=== PATIENT | male | born 1945 | race Caucasian/White ===

== ENCOUNTER 2016-11-27 19:44 | Inpatient (IN) | payer MEDICARE, OTHER ==
[~2016-11-27] VITALS: Ht 165.1 cm; Wt 71.8 kg
--- NOTE | ~2016-11-27 | CON ---
PATIENT'S NAME: LENY GALLEGOS [facility] AGE: 71 Y [address] ROOM: [place] [address] LOCATION: TU ADMIT DATE: 11/27/2016 Consultation DISCHARGE DATE: FAMILY PHYSICIAN: Manjit Gomez MD ATTENDING PHYSICIAN: Hector Pritchard DATE OF CONSULTATION: 12/06/2016 REFERRING PHYSICIAN: JANNY ERICKSON MD SURGICAL CONSULTATION HISTORY OF PRESENT ILLNESS: This is a complex 71-year-old patient, who had a hip fracture with fat emboli, sustained a CVA and myocardial infarction, who currently is in need of a percutaneous endoscopic gastrostomy. He was tolerating tube feedings well with a Dobbhoff tube but kept pulling this out, and family and primary care physician has suggested a percutaneous endoscopic gastrostomy. His only intraabdominal procedure is that of a laparoscopic cholecystectomy approximately 10 years ago. His medications have been reviewed, and he is on subcutaneous heparin, which will be discontinued tonight. He is also on antibiotics for urinary tract infection. I am also told by the family and the nurse that he is having a cardiac cath today because of a low ejection fraction of 35%, and his relative, who is a nurse, told me that he has an ostium secundum. He is paced for atrial fibrillation but not on systemic anticoagulation. I reviewed his medications and allergies in detail as well as his operations other than the laparoscopic cholecystectomy, orthopedic procedures. His medical problems are as outlined above. REVIEW OF SYSTEMS: Positive for laparoscopic cholecystectomy, requirement for [facility] catheter, and stroke. The remainder of the review of systems is noncontributory surgically for the surgical problem. FAMILY HISTORY: Likewise is noncontributory for the surgical issue. SOCIAL HISTORY: Likewise is noncontributory for the surgical issue. PHYSICAL EXAMINATION: VITAL SIGNS: He is disoriented, afebrile. Vital signs are stable. HEENT: Negative. SKIN: Turgor is satisfactory. CHEST: Clear. PATIENT'S NAME: LENY GALLEGOS [facility] AGE: 71 Y [address] ROOM: [place] [address] LOCATION: [facility] ADMIT DATE: 11/27/2016 Consultation DISCHARGE DATE: FAMILY PHYSICIAN: Manjit Gomez MD ATTENDING PHYSICIAN: Hector Pritchard HEART: No gallops or definitive murmurs. ABDOMEN: Soft, good bowel sounds, no masses or organomegaly. Groin is unremarkable. EXTREMITIES: Perfused. LABORATORY DATA: I have reviewed his laboratory data, which is generally satisfactory with a normal white count, hematocrit is satisfactory, platelet count satisfactory. Electrolytes satisfactory. BUN and creatinine satisfactory. PLAN: Percutaneous endoscopic gastrostomy under general anesthesia. I have discussed all risks, complications in great detail with the family, one of whom is a nurse, and they understand and accept. MD ELA HARRIS/kendal /[id number] d: 12/06/162321 t: 12/07/16 0522, CONSULTATION REPORT
--- NOTE | ~2016-11-27 | DS ---
PATIENT'S NAME: LENY GALLEGOS [facility] AGE: 71 Y [address] ROOM: [address] [address] LOCATION: TU ADMIT DATE: 11/27/2016 Discharge Summary DISCHARGE DATE: 12/09/2016 FAMILY PHYSICIAN: Manjit Gomez MD ATTENDING PHYSICIAN: Hector Pritchard PRIMARY DIAGNOSES: 1. Acute hypoxic respiratory failure. 2. Bilateral middle cerebral artery stroke. 3. Fat embolism syndrome. 4. Sepsis. 5. Escherichia coli pneumonia. 6. Enterococcus faecalis urinary tract infection. 7. Systolic heart failure. 8. Patent foramen ovale with severe shunting. 9. Asthma. 10. Left femur fracture. LABORATORY DATA: ABG on admission; pH of 7.37, pCO2 of 39, pO2 of 64, bicarb 22.5, saturation 91%. On admission, WBC was 14.0, prior to transfer was 17.8; H and H on admission were 12.4 and 36.1, prior to transfer were 10.3 and 32.6. Troponin on admission was less than 0.040 and by the next couple of days later went up to 10.2, which was the highest level obtained. ProBNP was 159 on admission, prior to transfer was 1952. Platelet was stable throughout the hospital stay. Sodium on admission was 145, highest level obtained was 149, was 150, prior to transfer was 147; potassium was stable at 3.7, prior to discharge was 3.9; bicarb was also stable throughout the hospital stay; BUN on admission was 16, was also stable throughout the hospital stay. Liver function test was also stable throughout the hospital stay. Total cholesterol 139, triglyceride 87, LDL 86. INR was 1.1. UA on admission, leukocytes 25, nitrite negative, wbc 0-2; the repeat a week later was leukocytes 100. nitrite negative, wbc 5-10, few bacteria. Vitamin level was 478, folate 34.7. procalcitonin was 0.76, on admission it was less than 0.05. MICROBIOLOGY DATA: Blood culture, no growth after 5 days. Urine culture was positive for Enterococcus faecalis. Tracheal aspirate was positive for E. coli. RADIOLOGY DATA: Chest x-ray on admission, cardiac pacemaker in place. Low lung volumes with bibasilar atelectasis. No vascular congestion or acute parenchymal infiltrate identified on portable upright study. CTA for PE protocol, no PE. Bibasilar segmental atelectasis. KUB: Dobbhoff feeding tube in place with tip in the region of the mid PATIENT'S NAME: LENY GALLEGOS [facility] AGE: 71 Y [address] ROOM: [place] [address] LOCATION: GNTU ADMIT DATE: 11/27/2016 Discharge Summary DISCHARGE DATE: 12/09/2016 FAMILY PHYSICIAN: Manjit Gomez MD ATTENDING PHYSICIAN: Hector Pritchard. CT of the head, no acute hemorrhage or midline shift. Decreased attenuation involving fox matter and white matter at the right temporoparietal region. The appearance is consistent with ischemic infarct in the right middle cerebral artery territory. Infarct may be subacute as there is some local mass effect with sulcal effacement area of decreased attenuation. CT head and neck without acute arterial lesion or significant stenosis or infarct, and the head CT is low dense and appears well established. This may be chronic. Comparison with priors would be helpful. CT head without contrast repeat shows new acute large left MCA distribution infarct with associated mass effect as described above. Stable remote appearing right MCA distribution infarct. KUB for position placement of Dobhoff, a feeding tube is present with tip below the level of the GE junction. Chest x-ray, suboptimal inspiration accentuates the cardiac silhouette and bronchovascular markings. No discrete focal infiltrate, pleural effusion, or pneumothorax identified. Support lines and tubes appear to be in satisfactory position, and KUB, Dobhoff feeding is present with tip called at the mid stomach. There is a nonobstructive bowel gas pattern. Repeat CT head, continued evolution of large subacute left MCA distribution infarct. No evidence of associated hemorrhage. Stable remote appearing ischemia in the posterior right temporal. Chest x-ray exam was performed under suboptimal inspiration. Cardiac silhouette is within normal limits. Cardiovascular: Echocardiogram. At rest, the following contractile abnormalities were noted. Hypokinesis of the apical septal, apical lateral, apical anterior, and apical cap segments contractility of all segments appeared normal. Ejection fraction probably 40%. Upon injection of bubbles, both atria immediately filled the bubbles and seen in LV and aorta within a couple of beats. Echo: Regular echo. Normal LV size with mild LV 30%-35%. Basal segments move better than the distal segments and apex. PFO and ASD by bubble study. 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 Right heart catheterization, moderate ectasia of LAD and circumflex. Right PATIENT'S NAME: LENY GALLEGOS [facility] AGE: 71 Y [address] ROOM: [place] [address] LOCATION: TU ADMIT DATE: 11/27/2016 Discharge Summary DISCHARGE DATE: 12/09/2016 FAMILY PHYSICIAN: Manjit Gomez MD ATTENDING PHYSICIAN: Hector Pritchard mid RCA mild ectasia. No stenosis. Normal LV function and wall motion. Medical treatment. HOSPITAL COURSE: This patient was admitted to the service of Orthopedic team of Dr. Pritchard and Dr. Pacheco for a left femur fracture, and hospitalists were consulted for preop clearance. After the patient was reviewed by Dr. Davis, Dr. Davis recommended for Pulmonary consult as the patient was in acute hypoxic respiratory failure, was on Ventimask, and required 10 L of oxygen at the time of evaluation, and only saturating 92%. His suspicion was for probable fat embolism syndrome responsible for his acute respiratory failure. After the patient was reviewed by Pulmonary, they recommended to put on hold the surgical intervention secondary to the patient's poor respiratory status. However, they did go ahead to do an echocardiogram with bubble study, which was positive, and by the second day of the patient's hospital stay, his oxygen demand had actually gone down from being on a Ventimask went up to BiPAP, and eventually, he was weaned down back to nasal cannula. However, on the third day of his hospital stay, the patient was observed to have developed an acute mental status change, and such that, the patient became aphasic, and an urgent CT head, which was done showed an old right MCA stroke. However, the patient remained aphasic and also developed right hemiplegia, and subsequently following this, the patient had whole stroke workup done, and the repeat CT head showed a new left MCA stroke. From the initial change in the mental status, Neurology consult was also called, and following the new finding of left MCA stroke, they recommended for the surgery to be delayed for another 48 hours given the huge size of the stroke. However, the patient continued to remain aphasic with right hemiplegia, and also left-sided neglect. Based on this, he failed speech and swallow evaluation and ultimately had to be getting his nutrition through the tube feeding. By December 01, 2016, the patient was observed to have developed a low-grade temperature. This was thought to be attributed to his left femur hematoma, however, sepsis workup, which was done showed an elevation in his procalcitonin, and urine culture ultimately became positive for Enterococcus faecalis, and his respiratory culture also was positive for E. coli, and prior to obtaining the sensitivity, the patient was empirically started on cefepime, which was later changed to Rocephin by the inbound telemarketer to receive for a total of 7 days. The patient's respiratory status again continued to worsen, again requiring high-flow oxygen, which was interchanged with BiPAP. Three days prior to transfer, the patient was taken into the senior cytogenetics laboratory director by the supervisor pumping who also was on the case for a left heart catheterization, which essentially did not show any coronary artery disease that required any intervention. They recommended for medical management. Following this, the patient's respiratory condition worsened, requiring to go back on high-flow of oxygen. During his stay, Palliative consult was also called as the patient's prognosis appeared pretty bad as was still aphasic and also with left-sided neglect and also with worsening respiratory condition, and on December 09, 2016, family decided to transfer the PATIENT'S NAME: LENY GALLEGOS [facility] AGE: 71 Y [address] ROOM: [place] [address] LOCATION: [facility] ADMIT DATE: 11/27/2016 Discharge Summary DISCHARGE DATE: 12/09/2016 FAMILY PHYSICIAN: Manjit Gomez MD ATTENDING PHYSICIAN: Hector Pritchard patient to higher level of care because of his cardiopulmonary failure, so the patient was transferred to [facility]. MEDICATIONS ON TRANSFER: 1. Prevacid 30 mg every day before breakfast. 2. Flagyl 500 mg IV every 6 hours. 3. Rocephin 2 g daily for total of 7 days. 4. Tylenol 650 mg every 6 hours. 5. Aspirin 325 mg q.h.s. 6. Lipitor 40 mg p.o. q.h.s. 7. Lasix 40 mg IV. 8. Metoprolol 12.5 mg p.o. twice daily. 9. Aldactone 12.5 mg p.o. daily. 10. Pulmicort 0.5 mg twice daily respiratory. 11. Atrovent 0.5 mg every 4 hours respiratory. 12. Xopenex every 4 hours p.r.n. 13. Tylenol 650 mg q.4 hours p.r.n. 14. Artificial tears. 15. Dulcolax 10 mg rectally daily p.r.n. 16. Flonase 50 mcg one spray everyday p.r.n. 17. Lopressor 2 mg IV every 4 hours p.r.n. 18. Morphine 2 mg IV every 2 hours p.r.n. 19. Zofran 4 mg IV every 4 hours p.r.n. MD CLEMENTINE MARQUEZ/kendal /[id number] d: 01/25/17 2142 t: 02/06/17 1641, DISCHARGE SUMMARY
--- NOTE | ~2016-11-27 | ENPV ---
Vascular Lower Extremities DVT Study Procedure Demographics Patient Name LENY GALLEGOS Date of Study 11/29/2016 Patient Number [id number] Gender Male Date of 1945 Age 71 Visit Number [id number] Height Accession Number [id number] Weight Room Number G6223 BSA BMI Referring Shamalouis Mehta Jolene Poole MD Physician Physician Physician Ordering Spirits Model Physician Bottle Assembler Rufina Bo, RT,RVT,RDCS Conclusions Procedure Type of Study: Veins:Lower Extremities DVT Study, Venous Duplex Lower Extremity Bilateral. Allergies - Chocolate. Velocities are measured in cm/s ; Diameters are measured in cm Right Lower Extremities DVT Study Measurements Right 2D and Doppler Measurements + + + + +------+------+ + !Location !Visualized!Compressibility!Thrombosis!Signal!Reflux!Reflux ! ! ! ! ! ! ! !(sec) ! + + + + +------+------+ + !GSV Thigh !Yes !Yes !None !Phasic!No ! ! + + + + +------+------+ + !Common !Yes !Yes !None !Phasic!No ! ! !Femoral ! ! ! ! ! ! ! + + + + +------+------+ + !Prox !Yes !Yes !None !Phasic!No ! ! !Femoral ! ! ! ! ! ! ! + + + + +------+------+ + !Mid Femoral!Yes !Yes !None !Phasic!No ! ! + + + + +------+------+ + !Dist !Yes !Yes !None !Phasic!No ! ! !Femoral ! ! ! ! ! ! ! + + + + +------+------+ + !Popliteal !Yes !Yes !None !Phasic!No ! ! + + + + +------+------+ + !Gastroc !Yes !Yes !None !Phasic!No ! ! + + + + +------+------+ + !PTV !Yes !Yes !None !Phasic!No ! ! + + + + +------+------+ + !Peroneal !Yes !Yes !None !Phasic!No ! ! + + + + +------+------+ + Left Lower Extremities DVT Study Measurements Left 2D and Doppler Measurements + + + + +------+------+ + !Location !Visualized!Compressibility!Thrombosis!Signal!Reflux!Reflux ! ! ! ! ! ! ! !(sec) ! + + + + +------+------+ + !GSV Thigh !Yes !Yes !None !Phasic!No ! ! + + + + +------+------+ + !Common !Yes !Yes !None !Phasic!No ! ! !Femoral ! ! ! ! ! ! ! + + + + +------+------+ + !Prox !Yes !Yes !None !Phasic!No ! ! !Femoral ! ! ! ! ! ! ! + + + + +------+------+ + !Mid Femoral!Yes !Yes !None !Phasic!No ! ! + + + + +------+------+ + !Dist !Yes !Yes !None !Phasic!No ! ! !Femoral ! ! ! ! ! ! ! + + + + +------+------+ + !Popliteal !Yes !Yes !None !Phasic!No ! ! + + + + +------+------+ + !Gastroc !Yes !Yes !None !Phasic!No ! ! + + + + +------+------+ + !PTV !Yes !Yes !None !Phasic!No ! ! + + + + +------+------+ + !Peroneal !Yes !Yes !None !Phasic!No ! ! + + + + +------+------+ + Impressions Right Impression Poor positioning but no evidence or indication of DVT in right lower extremity. Left Impression Left lower extremity veins were patent, however, proximal SFV appeared small; old DVT and vein atrophy versus trauma (fractured proximal left femur.) Signature dtt: dtd: 11/29/16 1050 Physician Self Edit
--- NOTE | ~2016-11-27 | CON ---
PATIENT'S NAME: L[facility]Y [facility] AGE: 71 Y [address] ROOM: [address] [address] LOCATION: GNTU ADMIT DATE: 11/27/2016 Consultation DISCHARGE DATE: FAMILY PHYSICIAN: Manjit Gomez MD ATTENDING PHYSICIAN: Hector Pritchard DATE OF CONSULTATION: 12/03/2016 REFERRING PHYSICIAN: JANNY ERICKSON MD LOCATION: Neurotrauma, [facility]. REASON FOR CONSULTATION: This is a Palliative Care referral for goals of care and the patient and family support. HISTORY OF PRESENT ILLNESS: This 71-year-old gentleman was admitted on 11/27/2016 after having a fall at home and fracturing his left hip, which is a proximal left femur fracture. The patient did not his head. He had been living at home with his son and had been walking with a walker and had right lower extremity weakness after right hip surgery with some footdrop in 2005. He has a history of second-degree AV block with a permanent dual-chamber pacemaker. The patient was transferred to [facility] from [place] for a possible femur fracture repair. The patient had been having hypoxia and he is currently on high-flow at 65 L. He has been having workup for potential fat emboli and was trying to get cleared for surgery. In the meantime, the patient had a decrease in level of consciousness and a CT of the head was done on 11/30/2016 revealing a new acute large left MCA infarct and a stable remote appearing right MCA distribution infarct. He is currently flaccid on right-side and aphasic. Neurology was consulted for right hemiplegia and mutism. He is not following commands. Does seem to blink his eyes on command. Left femur fracture was not repaired due to the patient's unstable current condition. PAST MEDICAL HISTORY: Gastroesophageal reflux disease with hiatal hernia, high-grade second-degree AV block, status post dual-chamber pacemaker implantation, [facility] [facility] in February of 2013, interrogated in May of 2016, cardiac catheterization back in March of 2016 with left ventricular ejection fraction of 60% to 65%, asthma, paroxysmal atrial fibrillation on Rythmol and aspirin, chronic right lower extremity weakness and chronic right hip footdrop, secondary to history of right hip surgery, history of severe hypotension, requiring resuscitation during right hip surgery, secondary to anesthetic medication during anesthesia. PATIENT'S NAME: [facility] AGE: 71 Y [address] ROOM: [address] [place], [place] [address] LOCATION: [facility] ADMIT DATE: 11/27/2016 Consultation DISCHARGE DATE: FAMILY PHYSICIAN: Manjit Gomez MD ATTENDING PHYSICIAN: Hector Pritchard ALLERGIES: PREDNISONE, PENICILLIN, CARBENICILLIN, AND CHOCOLATE FAVORS. HOME MEDICATIONS: See NOV. PAST SURGICAL HISTORY: Cholecystectomy, left carpal tunnel syndrome with median nerve release surgery, right total hip replacement in 2008, right total knee replacement 2005 in [place], dual-chamber [employer] pacemaker implantation in February of 2013, and catheterization in March of 2013 showing a clean coronary arteries and left ventricular ejection fraction 60% to 65%. FAMILY HISTORY: Father had leukemia and an NM at the age of 40. Mother had heart failure, breast cancer, and at an advanced age. SOCIAL HISTORY: Lives with his son. He has another son that lives in [place]. No alcohol or smoking history. REVIEW OF SYSTEMS: A 10-point review of systems was done and is negative except as mentioned in HPI and listed below: MUSCULOSKELETAL: Does moan some with turning at times and currently no moaning per nurse. Seems uncomfortable. Family notices that the patient had been uncomfortable and would grab left leg when having pain. GI: Last bowel movement was 11/27/2016. PHYSICAL EXAMINATION: GENERAL: This is a frail 71-year-old male. VITAL SIGNS: Temp 98.3, pulse 87 and regular, respirations 16, blood pressure 110/61, and O2 sats is 91% on 65 L of FiO2. GENERAL: Does open eyes, aphasic, in no acute distress. SKIN: Warm and dry. Color pale. HEENT: Normocephalic and atraumatic. Sclerae nonicteric. Conjunctivae pale, pink. Mouth is pink and moist without exudate. NG in right nares. Mouth is dry. No lesions. LYMPHS: No cervical adenopathy or thyromegaly. RESPIRATORY: Clear and diminished bilaterally. Breath sounds even and regular. CARDIAC: S1, S2 without murmurs or bruits. Slight lower extremity edema. ABDOMEN: Soft, nontender. Positive bowel tones. No hepatosplenomegaly. NEURO: Aphasic, right-side flaccid, is able to move left arm. MUSCULOSKELETAL: Appropriate range of motion on the right upper arm and PATIENT'S NAME: [facility] AGE: 71 Y [address] ROOM: [address] [place], [place] [address] LOCATION: [facility] ADMIT DATE: 11/27/2016 Consultation DISCHARGE DATE: FAMILY PHYSICIAN: Manjit Gomez MD ATTENDING PHYSICIAN: Hector Pritchard decreased on right-sided. EXTREMITIES: No cyanosis or deformities. Palliative performance scale is 20%, totally bed-bound, unable to do any activity, total care, intake is in tube feedings through NG. Conscious level is drowsy, aphasic. IMPRESSION: Left leg pain, dyspnea, and dysphagia. PLAN: 1. Met with sons Jamarcus and Toby and Toby's Michelle. Discussed overall condition, recent fall, femur fracture with recent cerebrovascular accidents, right-side flaccid, and current hypoxia requiring high-flow demand oxygen and decreased mental status. Family has a fairly good understanding of condition and answered questions and concerns. 2. Discussion of goals of care and code status and the patient's values. The patient did not have an advance directive. He has 2 sons that will be making decision and they are making decisions together; also, talking with their mother who is a nurse. The patient did not discuss his wishes with family members. Discussed the patient's overall condition, benefits, and burdens with coding with the patient's current chronic conditions. Answered questions and concerns. GOALS: 1. Continue with aggressive treatments. 2. Continue with full code. They will think about code status if the patient declines further. Spiritual needs. Medical Records Tech had been up to see the patient today. RECOMMENDATIONS: For pain, the patient is getting Tylenol p.r.n. per NG. Dysphagia, the patient has feeding tube. Did discussion of artificial nutrition and the patient's current condition. Answered questions and concerns with artificial nutrition in future. We will continue to support the patient and family. Total time was 60 minutes with 50 minutes for counseling and coordination of care. Thank you for allowing me to assist this patient and family. DONI ARENAS NP FOR MD MARGAUX RIOS/kendal PATIENT'S NAME: [facility] AGE: 71 Y [address] ROOM: [place] [address] LOCATION: [facility] ADMIT DATE: 11/27/2016 Consultation DISCHARGE DATE: FAMILY PHYSICIAN: Manjit Gomez MD ATTENDING PHYSICIAN: Hector Pritchard /[id number] d: 12/04/1603 t: 12/10/16 1453, CONSULTATION REPORT
--- NOTE | ~2016-11-27 | ER ---
PATIENT'S NAME: EL [facility] AGE: 71 Y [address] ROOM: [place] [address] LOCATION: [facility] ADMIT DATE: 11/27/2016 ER/Outpatient Report DISCHARGE DATE: FAMILY PHYSICIAN: Manjit Gomez MD ATTENDING PHYSICIAN: Hector Pritchard Admission date and time documented on the medical record. I saw the patient at 1945 hours. CHIEF COMPLAINT: Fall with fracture, proximal left femur, subtrochanteric fracture. HISTORY OF PRESENT ILLNESS: This patient is a 71-year-old male, who fell backwards on 2 steps, landed on his left hip, fracturing it. Denies hitting his head. Denies loss of consciousness. No headache, eyes, ears, nose, throat, neck, or spine pain. No chest pain. No shortness of breath. No labored breathing. No wheezing. Does have a history of asthma. No abdominal pain, nausea, vomiting, diarrhea, or incontinence of urine or stool. No other joint problems other than the left proximal femur hip. No skin eruptions or rash. No lacerations, abrasions, or contusions. No lightheadedness, dizziness, syncope, or near syncope. No other trauma. No recent colds, coughs, flus, fever, chills, or sweats. No history of neuro changes, psych issues, endocrine problems. HOME MEDICATIONS: See attached medication list. ALLERGIES: GEOCILLIN. SOCIAL HISTORY: Nonsmoker, occasional intake of alcohol. SIGNIFICANT PAST MEDICAL HISTORY: Atherosclerotic ischemic heart disease, nonobstructive coronary artery disease, gastroesophageal reflux, secondary AV block, paroxysmal atrial fibrillation, sick sinus syndrome, high-risk medications involving Rythmol, asthma, chronic fatigue syndrome, colitis, degenerative joint disease, degenerative osteoarthritis. OPERATIONS: Cholecystectomy, carpal tunnel release, right total hip arthroplasty, right total knee arthroplasty, esophagogastroduodenoscopy, colonoscopy, pacemaker insertion. PATIENT'S NAME: EL [facility] AGE: 71 Y [address] ROOM: [place] [address] LOCATION: [facility] ADMIT DATE: 11/27/2016 ER/Outpatient Report DISCHARGE DATE: FAMILY PHYSICIAN: Manjit Gomez MD ATTENDING PHYSICIAN: Hector Pritchard REVIEW OF SYSTEMS: All systems reviewed by me are negative with the exception of those discussed in the history of present illness. PHYSICAL EXAMINATION: VITAL SIGNS: Temperature 97.6 tympanic, pulse 90, respirations 18, blood pressure 107/71, O2 saturation on 4 L oxygen per nasal cannula is 83%. Did get him up to 93% on 13 L by non-rebreather mask. HEAD: Normocephalic. No abrasion, contusion, laceration, swelling of the scalp or face. EYES: Extraocular muscles intact. PERRL. EARS, NOSE, THROAT: Clear. Mucous membranes moist. Teeth and jaw intact. NECK: No nuchal rigidity. No thyromegaly or cervical adenopathy. No tenderness. SPINE: Negative. LUNGS: Clear. No rales, rhonchi, or wheezes. No labored breathing. No respiratory distress. No retractions. HEART: Regular. Pulses are palpable. No chest wall or ribcage pain to palpation. ABDOMEN: Flat, soft, nondistended, nontender. Good bowel tones. No organomegaly or abnormal mass palpable. PELVIS: Stable, nontender. EXTREMITIES: The patient has swelling of left thigh secondary to his fractured proximal femur. No other joint problems. Some shortening external rotation. Neurovascularly intact. SKIN: Clear. LABORATORY DATA AND X-RAYS: EKG showed paced rhythm. Chest x-ray showed no acute infiltrate. We will review x-ray with radiologist. Procalcitonin was less than 0.05. Lactate was 1.8. Arterial blood gases on 9 L per mask showed a pH of 7.37, pCO2 of 39, pO2 of 64 with an O2 saturation of 91%. White count is 14,000, 90 segs, 4 lymphs, 5 monos, hemoglobin is 12.4 with hematocrit 36.1, platelet count is 191,000. PTT was 25, pro-time was 11.4 with an INR 1.1. CMS was normal except for an elevated chloride 112, elevated glucose 138, low calcium of 8.2. CPK was 115, CK-MB was 2.4, troponin was less than 0.04. CRP was 0.34. Thyroid tests were normal. ProBNP was 159. I did review the x-ray of his pelvis and left hip, that shows subtrochanteric fracture of left hip or proximal left femur fracture, that involves the lesser trochanter. EMERGENCY DEPARTMENT COURSE: I did give the patient fentanyl for pain. IV normal saline fluids. Discussed the patient with Dr. Pritchard, orthopedic surgeon, and Dr. Davis, hospitalist. PATIENT'S NAME: LENY GALLEGOS [facility] AGE: 71 Y [address] ROOM: [place] [address] LOCATION: [facility] ADMIT DATE: 11/27/2016 ER/Outpatient Report DISCHARGE DATE: FAMILY PHYSICIAN: Manjit Gomez MD ATTENDING PHYSICIAN: Hector Pritchard IMPRESSION: 1. Fall off two steps, backwards, landing on his left hip, suffering a left proximal femur fracture, subtrochanteric fracture involving the lesser trochanter of the left hip. 2. History of asthma. The patient is hypoxic, on high-flow oxygen at 13 L per non-rebreather keeping his sats around 93%. 3. Past history of sick sinus syndrome with pacemaker insertion. 4. Paroxysmal atrial fibrillation by history. 5. History of atherosclerotic ischemic heart disease with nonobstructive coronary artery disease. 6. Degenerative joint disease. 7. Degenerative osteoarthritis. 8. High-risk medications, Rythmol. 9. Gastroesophageal reflux. 10. Chronic fatigue. 11. Past history of colitis. PLAN: The patient will be admitted to neurotrauma for further evaluation and operative repair of his left proximal femur hip. Discussion ensued with the patient concerning my findings and recommendations, he understands. MD JOMAR COLÓN/modl /[id number] d: 11/28/1645 t: 11/28/161901, OUTPATIENT REPORT
--- NOTE | ~2016-11-27 | ECHO ---
Transthoracic Echocardiography Report (TTE) Demographics Patient Name LENY GALLEGOS Date of Study 12/02/2016 Patient Number [id number] Visit Number [id number] Date of 1945 Room Number G6223 Gender Male Number Age 71 year(s) Referring Ericka Chua Filler Operator Amanda Gleason RVT, Physician [facility] Jason Carpio MD Physician Interpreting Ericka Chua Probation And Patrol Agent Physician MD Supervising Ordering Ericka Chua MD/MLP Physician Nurse Stress Orchard Manager Conclusions Summary Normal LV size with mild JAMIL.LVEF:30-35%.Basal segments move better than the distal segments and apex. PFO/ASD by bubble study. Ascending aorta in the upper limits of normal. LVEF appear a little worse. Procedure Type of Study TTE procedure:Echo Limited w/ Contrast. Procedure Date Date: 12/02/2016 Start: 07:59 AM Study Location: Inpatient Portable Technical Quality: Adequate visualization Indications:Patent foramen ovale (PFO). Appropriate Use Criteria: 9 Patient Status: Routine HR: 88 bpm BP: 137/80 mmHg Allergies - Chocolate. M-Mode/2D Measurements LV Diastolic Dimension: 4.42 cm LV Systolic Dimension: 2.9 cm LV Septum Diastolic: 0.78 cm LV PW Diastolic: 1.13 cm AO Root Dimension: 3.2 cm LA Dimension: 3 cm RV Diastolic Dimension: 2.93 cm LVOT: 2.5 cm Findings Left Ventricle The left ventricle is normal in size . Mild assymetric septal left ventricular hypertrophy.Basal segments appear to move.Distal segments and apex appear hypokinetic.LVEF:30-35%. Right Ventricle Nearly normal. Pacemaker wire seen. Left Atrium Informed consent was obtained, bubble study was done, bubbles crossed to the left atrium suggesting a PFO or ASD. Right Atrium Positive bubble study. Pericardial Effusion No evidence of pericardial effusion. Miscellaneous The ascending aorta appears mildly dilated and measures 3.7 cm. Pleural Effusion No evidence of pleural effusion. Contractility Score LV regional wall motion:(0-Non visualized 1-Normal 2-Hypokinesis 3-Akinesis 4-Dyskinesis 5-Aneurysm) Signature dtt: Toma Barnett dtpratibha: 12/02/16 0759 Physician Self Edit
--- NOTE | ~2016-11-27 | PN ---
PATIENT'S NAME: LENY GALLEGOS [facility] AGE: 71 Y [address] ROOM: [address] [address] LOCATION: [facility] ADMIT DATE: 11/27/2016 Progress Notes DISCHARGE DATE: FAMILY PHYSICIAN: Manjit Gomez MD ATTENDING PHYSICIAN: Hector Pritchard DATE OF SERVICE: 12/08/2016 HISTORY OF PRESENT ILLNESS: This is a patient who had a hip fracture, fat embolus, cerebrovascular accident, myocardial infarction, and has multiple problems. He was planning to have a percutaneous endoscopic gastrostomy yesterday, but the day before, he had a cardiac catheterization and apparently aspirated during the cardiac catheterization. He has his Dobbhoff feeding tube in now. His laboratory values of today show reasonable electrolytes. He has an elevated BUN of 35. Creatinine is 0.9. His liver function tests are generally flat. His BNP is 1900. His white count is elevated at 14.7, hematocrit is satisfactory. I have reviewed his chest x-ray as well. He is on antibiotics. He had an episode last night where his pulse oximetry went down significantly. He was placed on BiPAP. There was a question of whether he needed to be intubated, and it was not sure because there was no apparent power of cloth printer. He improved with BiPAP. The remainder of the review of systems was surgically noncontributory. PHYSICAL EXAMINATION: VITAL SIGNS: He had a low-grade fever last night. Vital signs are stable. Pulse oximetry varies. GENERAL: He looks somewhat uncomfortable. Examination does not show significant change from the surgical perspective. MD ELA HARRIS/kendal /[id number] d: 12/08/16 1131 t: 12/13/161, PROGRESS NOTES
--- NOTE | ~2016-11-27 | CON ---
PATIENT'S NAME: LENY GALLEGOS [facility] AGE: 71 Y [address] ROOM: [address] [address] LOCATION: [facility] ADMIT DATE: 11/27/2016 Consultation DISCHARGE DATE: FAMILY PHYSICIAN: Manjit Gomez MD ATTENDING PHYSICIAN: Hector Pritchard DATE OF CONSULTATION: 11/28/2016 REFERRING PHYSICIAN: JANNY ERICKSON MD The patient was seen and examined on November 28, 2016. CHIEF COMPLAINT: Subtrochanteric fracture, left hip. HISTORY: This 71-year-old male lives in [place], [place], with family. 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 He was stepping up on a step in the garage and tripped falling onto his left hip and landing on cement. He had severe pain in the left hip and was unable to ambulate. He was brought by ambulance to [facility] where x-rays demonstrated a comminuted displaced subtrochanteric fracture of the left hip. He denies chest pain, shortness of breath, or dizziness or blackout spells. There were no other contributing causes to the fall other than tripping. PAST MEDICAL HISTORY: ALLERGIES: GEOCILLIN AND PENICILLIN. MEDICATIONS: 1. Anoro Ellipta 62.5-25 mcg inhaler powder. 2. Aspirin 81 mg daily. 3. Fish oil. 4. Fluticasone nasal spray suspension. 5. Gabapentin. 6. Hydrocodone. 7. Metoclopramide. 8. Vitamins. 9. Nabumetone. 10. Omeprazole. 11. Propafenone. 12. Sumatriptan. 13. Ventolin. 14. Zyrtec. [facility]: 71 Y [address] ROOM: [address] [address] LOCATION: [facility] ADMIT DATE: 11/27/2016 Consultation DISCHARGE DATE: FAMILY PHYSICIAN: Manjit Gomez MD ATTENDING PHYSICIAN: Hector Pritchard PAST MEDICAL HISTORY: Irregular heart beat, he has a pacemaker; COPD; diaphragmatic hernia; reactive airway disease; gastroesophageal reflux; migraine headaches; osteoporosis; and urinary problems. PAST SURGICAL HISTORY: He has had a pacemaker, and he has had a right total hip arthroplasty. FAMILY HISTORY: Family history of cardiac disease. SOCIAL HISTORY: . No history of smoking or alcohol use. REVIEW OF SYSTEMS: He is a little short of breath. Denies chest pain or palpitations. No blackout spells, dizziness, or blurred vision. He does have occasional constipation. No dysuria or hematuria. No malaise or skin changes. No fevers, chills, or infections. No auditory or visual hallucinations. PHYSICAL EXAMINATION: GENERAL: He is awake, alert, and oriented x3. Mood and affect appropriate. VITAL SIGNS: He is using a BiPAP machine. His BMI is 25. Heart rate 72, temperature 98, respirations 18, and blood pressure 94/58. HEENT: Atraumatic, normocephalic. PERRL. EOMI. TMs clear. Throat clear. NECK: Supple. CHEST: Clear to auscultation. HEART: Regular rhythm. ABDOMEN: Soft, nontender, without masses. EXTREMITIES: No cyanosis or edema. He does have weakness of dorsiflexion of his right ankle. Good range of motion, right hip without pain. Left hip is short and externally rotated. He is tender in the left groin. He has intact pulses. Good strength at dorsi and plantar flexion of his left foot. IMAGING DATA[facility] a subtrochanteric fracture of the left hip, it is comminuted and displaced. IMPRESSION: 1. Subtrochanteric fracture, left hip. 2. Chronic obstructive pulmonary disease. 3. Status post right total hip. 4. Right footdrop. 5. Status post pacemaker. PATIENT'S NAME: LENY GALLEGOS [facility] AGE: 71 Y [address] ROOM: [place] [address] LOCATION: [facility] ADMIT DATE: 11/27/2016 Consultation DISCHARGE DATE: FAMILY PHYSICIAN: Manjit Gomez MD ATTENDING PHYSICIAN: Hector Pritchard PLAN: Preoperative medical clearance. His hypoxia will need to be corrected followed by ORIF left hip with a TFN nail. I discussed details of the surgical procedure, risks, benefits, and alternatives, emphasizing anesthetic, neurovascular, and infectious complications, explaining that Dr. Pritchard would be doing the surgery. The patient desires to proceed with surgery as planned. MD ЕКАТЕРИНА DAVIS/modl /[id number] d: 11/29/16 0643 t: 12/18/16 1114, CONSULTATION REPORT
--- NOTE | ~2016-11-27 | CON ---
[facility]GE: 71 Y [address] ROOM: [place] [address] LOCATION: [facility] ADMIT DATE: 11/27/2016 Consultation DISCHARGE DATE: FAMILY PHYSICIAN: Manjit Goemz MD ATTENDING PHYSICIAN: Hector Pritchard REFERRING PHYSICIAN: JANNY ERICKSON MD This 71-year-old gentleman is referred for rehab evaluation, admitted on 11/27/2016. He reportedly tripped on one of the steps and fell backwards and did not hit his head, but he landed on his left hip and suffered a left femur fracture (subtrochanteric fracture). History of right hip surgery and status post right foot drop. History of ischemic heart disease. Reflux esophagitis. Sick sinus syndrome. Status post pacemaker placement. Asthma. Colitis. Chronic degenerative joint disease. Osteoarthritis. At the present time, questionable possible fat embolism, he was found also to be hypoxic and finance officer is involved also. He is now with Dobhoff, which I agree with, and is not able to show good orientation. He seems to be able to comprehend a little bit, but he is not able to follow well. He is apraxic and shows signs of inability to understand and/or express, maybe a little bit able to understand; however, it needs much cueing and hands-on. He is able to follow on off with his eyes at source of voice; however, he is having marked weakness throughout, especially on the left upper and lower extremity with apraxia with tongue and the mouth. At the present time, he is withdrawing with pinprick on right side and left side minimal withdrawing. PATIENT'S NAME: LENY GALLEGOS [facility] AGE: 71 Y [address] ROOM: [address] [address] LOCATION: [facility] ADMIT DATE: 11/27/2016 Consultation DISCHARGE DATE: FAMILY PHYSICIAN: Manjit Gomez MD ATTENDING PHYSICIAN: Hector Pritchard Deep tendon reflexes are slightly brisk throughout, especially on the left side. Babinski is equivocal. VITAL SIGNS: Blood pressure 134/70, temperature 97.8, pulse 98 to 113, respiration rate 19. He is 5 feet 5 inches and weighs 71.0 kg. MEDICATION: 1. Protonix. 2. Morphine sulfate. 3. Dulcolax. 4. Rythmol. 5. Aspirin. 6. Heparin sodium. 7. NaCl 0.9%. 8. Tylenol. 9. Pulmicort. 10. Atrovent. 11. Artificial tears. 12. Flonase. 13. Xopenex. 14. Zofran. 15. Cefazolin. 16. MOM. 17. Percocet. 18. Topamax. 19. Multivitamin. 20. Gabapentin. 21. [place]-3. 22. Tums. 23. Pepcid. 24. Dextrose 5%. At the present time, we will start him on PT, OT, speech bedside therapy, please see the orders. I will follow on him when stable. I take him to rehab and I would suggest about 3-4 weeks of intensive rehabilitation and follow thereafter on outpatient basis. Thank you for this referral. I will be keeping a close eye on him after he has his hip fixed per Ortho, and I will follow with PT, OT, and Speech regularly. Thank you for this referral. I did discuss all this with his family. They verbalized understanding and agreement with plan of care. PATIENT'S NAME: LENY GALLEGOS [facility] AGE: 71 Y [address] ROOM: [place] [address] LOCATION: [facility] ADMIT DATE: 11/27/2016 Consultation DISCHARGE DATE: FAMILY PHYSICIAN: Manjit Gomez MD ATTENDING PHYSICIAN: Hector Pritchard MD JOSÉ KWON/modl /[id number] d: 11/30/16 1054 t: 12/03/16 0811, CONSULTATION REPORT
--- NOTE | ~2016-11-27 | CON ---
PATIENT'S NAME: EL [facility] AGE: 71 Y [address] ROOM: [place] [address] LOCATION: [facility] ADMIT DATE: 11/27/2016 Consultation DISCHARGE DATE: 12/09/2016 FAMILY PHYSICIAN: Manjit Gomez MD ATTENDING PHYSICIAN: Hector Pritchard DATE OF CONSULTATION: 11/28/2016 REFERRING PHYSICIAN: Janny Erickson MD INDICATION: Acute respiratory failure and preop clearance. HISTORY OF PRESENT ILLNESS: This is a 71-year-old male, well known to Dr. Erickson with a history of mild COPD with PFTs last being in May 2016 showing an FEV1 of 72% with significant bronchodilator response, right hemidiaphragm eventration and other comorbidities, who experienced a mechanical fall yesterday and fractured his left hip. He reports that he was on room air in [place] when he presented for further evaluation, and during the transfer started requiring more oxygen, and he is now currently on 85% high-flow with saturations of 88% to 90% without talking. He reports 6/10 pain in his left hip still. He denies any cough, wheezing, sputum production, hemoptysis, chest pain, syncope, or edema. His last office visit was in August 2016, and he reports that he has not been using his albuterol since then due to jones; however, he has not had any exacerbations or worsening shortness of breath up until the ambulance ride. PAST MEDICAL HISTORY: Asthma/COPD overlap syndrome; right hemidiaphragm eventration; GERD with hiatal hernia; second-degree AV block, status post dual-chamber pacemaker. He has chronic right lower extremity weakness with chronic right foot drop secondary to a history of right hip surgery. ALLERGIES: SEE NOV. MEDICATIONS: See NOV. SOCIAL HISTORY: The patient denies any history of alcohol or tobacco use. FAMILY HISTORY: His father had leukemia and an [place] at the age of 40. Mother had heart failure and breast cancer and at an advanced age. PATIENT'S NAME: EL [facility] AGE: 71 Y [address] ROOM: [place] [address] LOCATION: [facility] ADMIT DATE: 11/27/2016 Consultation DISCHARGE DATE: 12/09/2016 FAMILY PHYSICIAN: Manjit Gomez MD ATTENDING PHYSICIAN: Hector Pritchard REVIEW OF SYSTEMS: A 12-point review of systems negative except what is noted in the HPI. PHYSICAL EXAMINATION: VITAL SIGNS: Blood pressure 106/62, pulse 89, respirations 20, temp 97.9. He is on high-flow FiO2 85% with sats 88%-90%. GENERAL: This is a well-developed, well-nourished male, who is alert and oriented x3 and appears in no acute distress at the time of exam. HEENT: Head: Normocephalic and atraumatic. Eyes: Clear. NECK: Supple. No adenopathy. No carotid bruits or JVD. LUNGS: Clear throughout bilaterally. No wheezes or rales. HEART: Regular rate and rhythm without murmur, gallop, or rub. ABDOMEN: Soft, nontender, nondistended. Bowel sounds x4. EXTREMITIES: No cyanosis, clubbing, or edema. LABORATORY AND DIAGNOSTIC DATA: An ABG showed a pH of 7.37, pCO2 of 39, pO2 of 64, bicarb 22.5. Lactate was 2.5. ProBNP 159. Procalcitonin less than 0.05. Sodium 142, potassium 4.3, BUN 16, creatinine 0.9. WBC 10, hemoglobin 11.3, hematocrit 32.9, platelets 182. CT of the chest per PE protocol was negative for PE and showed bilateral atelectasis at the bases. ASSESSMENT: 1. Acute hypoxic respiratory failure, question secondary to fatty emboli. Doubtful chronic obstructive pulmonary disease exacerbation as this was very quick onset. There are no signs and symptoms of congestive heart failure or pneumonia as well, and exam for pulmonary embolism was negative. Also, pain is not out of proportion currently. 2. Preop clearance, which is on hold until evaluations have been made. 3. Asthma/chronic obstructive pulmonary disease overlap, mild, stable. 4. Left hip fracture. 5. Right hemidiaphragm eventration. PLAN: Agree with starting budesonide along with Xopenex and Atrovent inhalations currently. We will work to wean oxygen as tolerated. We will discuss the situation with Dr. Erickson and further recommendations will be made pending his evaluation. Thank you for the consult and opportunity to participate in the patient's care. PATIENT'S NAME: LENY GALLEGOS [facility] AGE: 71 Y [address] ROOM: [place] [address] LOCATION: [facility] ADMIT DATE: 11/27/2016 Consultation DISCHARGE DATE: 12/09/2016 FAMILY PHYSICIAN: Manjit Gomez MD ATTENDING PHYSICIAN: Hector Pritchard APRN FOR JANNY ERICKSON MD [facility]/modl /[id number] d: 12/11/162035 t: 12/23/16 0915, CONSULTATION REPORT
--- NOTE | ~2016-11-27 | CATH ---
Cardiac Diagnostic Report Demographics Patient Name EL Joiner Gender Male Date of 1945 Age 71 year(s) Patient Number [id number] Date of Study 12/06/2016 Visit Number [id number] Room Number G6[place] [id number] Ht 165.1 cm Wt 70.76 kg Referring Jason Manjit Joiner MD Primary Physician Physician Performing Ericka Secondary Physician Physician Toma ANDERSON Diagnostic Ericka Assisting Physician Physician Toma ANDERSON Interventional Physician Application Support Consultant Physician Findings and Conclusions Diagnostic Findings and Conclusion Moderate ectasia of LAD and CX. RIght mid RCA mild ectasia. No stenosis. Normal LV function and wall motion. Diagnostic Recommendations Medical treatment. Procedure Description The patient was brought to the diagnostic cardiac catheterization-EP laboratory in the fasting, non-sedated state. Informed consent was obtained in the written and verbal form after the risks and benefits were explained. The patient is non verbal due to stroke. The planned puncture-incision site(s) were shaved and prepped with ChloraPrep and draped in the usual sterile manner. Supplemental oxygen was delivered by a registered nurse under physician guidance. Surface ECG rhythm, blood pressure measurement, and pulse oximetry were monitored throughout the procedure. Arterial access. The access site was infiltrated with lidocaine. The vessel was entered with the Seldinger technique. A sheath was advanced into the vessel and used for catheter placement. Selective left coronary angiography. A catheter was advanced into the left coronary vessel ostium under Fluoroscopic guidance. Contrast was injected by hand. Images were obtained in multiple projections. Selective right coronary angiography. A catheter was advanced into the right coronary vessel ostium under fluoroscopic guidance. Contrast was injected by hand. Images were obtained in multiple projections. Left heart catheterization with ventriculography. A catheter was advanced across the aortic valve to the left ventricle under fluoroscopic guidance. Resting hemodynamics were obtained. With the catheter at the left ventricular apex, contrast was injected. Images were obtained in EILEEN projections. Post-ventriculography LV pressure was obtained. The catheter was gradually withdrawn into the aorta with continuous pressure recording. Arterial artery hemostasis was achieved. The patient was transferred to a regular nursing floor via cart accompanied by a nurse. The patient left the laboratory in stable condition. Diagnostic Cath Status: Urgent Procedure Procedure Type Diagnostic procedure:Ventriculogram:, Left, Angiography:, Coronary Angios w/LHC Indications: Non-ST elevation IA and CVA. The procedure was explained in detail to the patient. Risks, complications and alternative treatments were reviewed. Written consent was obtained. Medications Reviewed with Patient prior to Procedure. Angiographic Findings Dominance: Right Cardiac Arteries and Lesion Findings LMCA: Luminal irregularities LAD: Proximal moderate extasia. No stenosis. LCx: Proximal moderate extasia. No stenosis. RCA: Large. Mid RCA mild extasia. No stenosis. Procedure Data Procedure Date Date: 12/06/2016Start: 08:22 PMEnd: 08:51 PM Entry Locations - Retrograde Percutaneous access was performed through the Right Femoral artery (Primary location). A 7 Fr sheath was inserted. Hemostasis was successfully obtained using Perclose ProGlide ([employer]). Closure Comments: Perclose deployed by Ludy Nieto. Procedure Medications Order and Administration + + +---------+ + !Time !Medication !Dosage !Route ! + + +---------+ + !12/06/2016 08:08 PM !0.9% NaCl !ml/hr !I.V. drip ! + + +---------+ + !12/06/2016 08:12 PM !Oxygen !6 l/min !NC ! + + +---------+ + !12/06/2016 08:17 PM !Oxygen !6 l/min !Mask ! + + +---------+ + !12/06/2016 08:24 PM !Oxygen !8 l/min !Mask ! + + +---------+ + !12/06/2016 08:25 PM !0.9% NaCl !100 ml !I.V. drip ! + + +---------+ + Devices Used - A6 Fr. BS JR 4 Diag. Catheterwas used for:Right coronary angiography. - A6 Fr. BS JL 4 Diag. Catheterwas used for:Left coronary angiography. - A5 Fr. BS Angled Pigtail Diag. Catheterwas used for:Left ventriculography. Contrast Material - Isovue [id number] ml Fluoroscopy Time: Diagnostic: 5:54 minutes. Total: 5:54 minutes. Fluoroscopy Dose: Diagnostic: 1408 mGy. Total: 1408 mGy. Estimated Blood Loss: 20 ml. Medical History Performed Procedures and Imaging Results - No ACC stress or imaging studies were performed. History of Disease + + + + !Diagnosis !Date !Comments ! + + + + !Stroke ! ! ! + + + + Allergies - Chocolate. - Other:(Prednisone, carbenicillin,). Risk Factors The patient risk factors include:cerebrovascular disease, family history of premature CAD, last creatinine: 0.4 mg/dl and creatinine clearance: 164.62 ml/min. Admission Data Admission Date: 11/27/2016 Admission Time: 10:13 PM Admit Source: [facility] Insurance Payors: Medicare. Admission Medications + +------+-------+ + + + + !Medication!Dosage!Times !Last !Last !Administered !Comments ! ! ! !Per Day!Delivery !Delivery ! ! ! ! ! ! !Date !Time ! ! ! + +------+-------+ + + + + !Aspirin ! ! ! ! !Yes ! ! !(any) ! ! ! ! ! ! ! + +------+-------+ + + + + Clinical Evaluation Leading to Procedure - The patient's CAD presentation was assessed as: Non-STEMI. VA LV function assessed as:Normal. Ejection Fraction - 12/02/2016 - Method: Echocardiography. EF%: 35. LVA Segment Contractility 1 - Normal 3 - Mild 5 - Severe 7 - Dyskinesis hypokinesis hypokinesis 2 - 4 - Moderate 6 - Akinesis 8 - Aneurysm Hypokinesis hypokinesis Hemodynamics Condition: Rest O2 Consumption: Estimated: 237.45Heart Rate: 118 bpm Pressures (mmHg) +-----+ + !Site !Pressure ! +-----+ + !LV !138/-6 ,1 ! +-----+ + !LV !131/-6 ,0 ! +-----+ + !AO !126/75 (97) ! +-----+ + !LV !134/-6 ,0 ! +-----+ + !AO !128/75 (99) ! +-----+ + !AO !132/79 (104) ! +-----+ + Valve Gradients and Areas + +---------+---------+---------+ +---------+ + !Valve !Peak !Mean !Area !Index !Flow !Source ! + +---------+---------+---------+ +---------+ + !Aortic !6 !10 ! ! ! ! ! + +---------+---------+---------+ +---------+ + !Aortic !6 !10 ! ! ! ! ! + +---------+---------+---------+ +---------+ + Shunts Oxygen Values O2 Capacity 126.48 O2 Consumption 237.45 Discharge Data Discharge Date: 12/09/2016 Hospital Status: Inpatient Signatures dtt: Toma Barnett dtd: 12/06/162021 Physician Self Edit
--- NOTE | ~2016-11-27 | CON ---
PATIENT'S NAME: [facility] AGE: 71 Y [address] ROOM: [place] [address] LOCATION: [facility] ADMIT DATE: 11/27/2016 Consultation DISCHARGE DATE: FAMILY PHYSICIAN: Manjit Gomez MD ATTENDING PHYSICIAN: Hector Pritchard DATE OF CONSULTATION: 11/27/2016 REFERRING PHYSICIAN: Angel Mallory MD REASON FOR CONSULTATION: Preoperative medical clearance for surgery of the proximal left femur fracture status post mechanical fall. CHIEF COMPLAINT: Left hip pain status post mechanical fall. HISTORY OF PRESENT ILLNESS: This is a 71-year-old male, who says that when he was trying to walk up the stairs, he accidentally tripped on one of the steps and fell backwards landing on the left hip on the ground. He denies any loss of consciousness, head trauma, presyncope, nausea or vomiting, palpitation, chest pain or seizure-like activity. He said the fall was purely mechanical. The patient has an unstable gait and chronically has right lower extremity weakness and right foot drop which he said he started having it after prior right hip surgery a few years ago. After the fall because of the pain in the left hip so he could not get up. The son called the ambulance, and the patient was brought to the outside facility at [place]. Over there, the patient was found to have a left proximal femur fracture. Therefore, the patient was sent over here for a higher level of care. Regarding his preoperative medical clearance, at baseline, the patient's METS score is less than 4 due to chronic exertional dyspnea since last summer, and the patient has seen his primary flake cutter operator, [facility] 71 Y [address] ROOM: [address] [address] LOCATION: [facility] ADMIT DATE: 11/27/2016 Consultation DISCHARGE DATE: FAMILY PHYSICIAN: Manjit Gomez MD ATTENDING PHYSICIAN: Hector Pritchard Dr., and the patient has had multiple cardiac workups including cardiac catheterization in March 2013. At that time, it did not show any significant coronary artery disease and normal left ventricle ejection fraction of 60% to 65%. The patient is also status post pacemaker implantation with a dual-chamber [employer] in February 2013 for history of advanced second-degree AV block. The patient last seen his primary flake cutter operator, Dr. Hallman, back on June 07, 2016. At that time, the patient still complained of persistent dyspnea on exertion, and during that visit according to the patient, the patient's pacemaker was checked and it was normal. The patient also had a CT of the chest with contrast as well as a pulmonary function test done on that visit. The CT pulmonary angiogram of the chest at that time on June 13, 2016, showed no vascular congestion or acute infiltrate. Cardiac pacemaker in place. Compression deformity at multiple vertebrae with exaggerated kyphosis in the upper thoracic region. The pulmonary function test was performed by Dr. Cortez on that same day and was consistent with asthma without evidence of restrictive lung disease. After that, the patient was referred to Dr. Cortez for followup and management of his exertional dyspnea and diagnosis of asthma. The patient states that he has seen Dr. Cortez twice in the office, and he was given two inhalers, a ProAir and the other inhaler that the patient could not remember the name. But given that patient's insurance does not cover, the patient was given a few samples, and after he ran out, the patient was able to get more supplies according to the patient from some provider in [place]. In [place], patient was only given the other inhaler (the one he could not remember the name but said was some inhaled steroids) but stopped using it the last 2 weeks because he wanted to save it for when he needed it. REVIEW OF SYSTEMS: As mentioned in the history of present illness. All other systems are reviewed and are negative except for those mentioned in history of present illness. PAST MEDICAL HISTORY: 1. Gastroesophageal reflux disease with hiatal hernia. 2. High-grade second-degree AV block, status post dual chamber pacemaker PATIENT'S NAME: LENY AGLLEGOS [facility] AGE: 71 Y [address] ROOM: [id number] [place], [place] [address] LOCATION: [facility] ADMIT DATE: 11/27/2016 Consultation DISCHARGE DATE: FAMILY PHYSICIAN: Manjit Gomez MD ATTENDING PHYSICIAN: Hector Pritchard implantation, [employer] in February 2013, and according to the patient, it was interrogated in May 2016, and that was normal according to the patient. 3. Cardiac catheterization back in March 2013 showed normal left ventricular ejection fraction of 60% to 65% and no significant coronary artery disease. 4. Asthma (refer to the history of present illness for the report of the pulmonary function test). 5. Paroxysmal atrial fibrillation. On Rythmol and aspirin. 6. Chronic right lower extremity weakness with chronic right footdrop secondary to prior history of right hip surgery according to the patient and the patient's family members. 7. History of severe hypotension requiring resuscitation during the right hip surgery in the past secondary to some anesthetic medication during the anesthesia according to the patient and the family members that has happened during a right hip surgery and they are concerned that for the left hip surgery at this time the same problem might happen. ALLERGIES: PREDNISONE. THE PATIENT STATES THAT IT MAKES HIM FEEL VERY SICK INCLUDING GI UPSET AND JUST FEEL VERY TIRED. HE REFUSED TO EVER TAKE ANOTHER PREDNISONE IN THE FUTURE. HOME MEDICATIONS: Currently is being reconciled with the pharmacy. SOCIAL HISTORY: The patient denies any alcohol or cigarette or illegal drug use. He ambulates with a cane at home. PAST SURGICAL HISTORY: 1. Status post cholecystectomy. 2. Status post left carpal tunnel syndrome, median nerve release surgery. 3. Status post right total hip replacement in 2008 according to the patient. 4. Status post right total knee replacement in 2005 in [place]. 5. Status post dual chamber [employer] pacemaker implantation in February 2013. 6. Status post cardiac catheterization in March 2013 showed clean coronary arteries and a normal left ventricular ejection fraction of 60% to 65%.. FAMILY HISTORY: Father had leukemia and had myocardial infarction at age 40. Mother had heart failure and breast cancer and from advanced age. PHYSICAL EXAMINATION: VITAL SIGNS: At the time of my dictation, blood pressure 140/80, temperature PATIENT'S NAME: LENY GALLEGOS [facility] AGE: 71 Y [address] ROOM: [place] [address] LOCATION: [facility] ADMIT DATE: 11/27/2016 Consultation DISCHARGE DATE: FAMILY PHYSICIAN: Manjit Gomez MD ATTENDING PHYSICIAN: Hector Pritchard 98, respirations 20, and saturation 92% on 10 L on face mask, heart rate 92, and the pain 6/10 on the left hip. GENERAL APPEARANCE: Alert and oriented x3, in mild acute distress due to left hip pain. He does not look septic. HEENT: Pupils are equally round and reactive to light. Extraocular muscles are intact. Anicteric sclerae. Nasal turbinates are normal bilaterally. Moist oral mucosa. No oral thrush. NECK: No JVD. No cervical lymphadenopathy. No neck stiffness. CARDIOVASCULAR: Paced rhythm. Normal S1, S2. No murmur, no rubs, no gallops. RESPIRATORY: Clear to auscultation. I could not hear any wheezing or rales or rhonchi or crackles. Lung sounds are clear, but they are somewhat decreased diffusely. ABDOMEN: Soft, nontender, nondistended. Normal bowel sounds. No hepatosplenomegaly. Bowel sounds are present. No abdominal rigidity. No palpable mass. EXTREMITIES: No edema in upper or lower extremities. Dorsalis pedis pulses and posterior tibialis pulses present bilaterally +2. I could feel the pulse with my finger and also with the Doppler as well. I also checked the femoral pulse in bilateral lower extremities and both present at +2. Sensation also intact in both lower extremities and also both upper extremities. SKIN: No ulcer, no rash, no cyanosis. MUSCULOSKELETAL: Range of motion is limited on the left lower extremity. I did not check the range of motion due to the fracture on the left lower extremity in the left proximal femur. Right lower extremity is chronically weak. Muscle strength about 2/5 to 3/5 which is chronic. Bilateral upper extremity strength totally intact at 5/5. Sensation also intact. NEUROLOGIC: Grossly nonfocal except limited range of motion of the left lower extremity and the right lower extremity muscle weakness about 2/5 to 3/5, chronic at the baseline. LABORATORY DATA: ABG performed on 9L of oxygen on the face mask showed a pH of 7.37, pCO2 of 39, pO2 of 64, bicarbonate 22.5, saturation 91%. Lactic acid 1.8. CPK 115. Troponin less than 0.04. ProBNP 159. White blood cell 14, hemoglobin 12.4, hematocrit 36.1, MCV 93.8, platelets 191. Glucose 138, BUN 16, creatinine 0.9, sodium 145, potassium 3.7, chloride 112, CO2 of 24, calcium 8.2, total protein 5.6, albumin 2.9. AST 26, ALT 20, alkaline phosphatase 66. Total bilirubin 0.5, anion gap 12.7, globulin 2.7. GFR more than 60. INR 1.1. PTT 25. Urinalysis negative for UTI. CK-MB 2.4. CRP 0.34. TSH 1.93, free T4 of 1.1. Procalcitonin less than 0.05. IMAGING STUDIES: EKG on admission on November 27, 2016, at 8:11 p.m. showed ventricular pacing, heart rate 88, [place] 177 milliseconds, QRS 151 milliseconds, QTc 466 PATIENT'S NAME: LENY GALLEGOS [facility] AGE: 71 Y [address] ROOM: [place] [address] LOCATION: [facility] ADMIT DATE: 11/27/2016 Consultation DISCHARGE DATE: FAMILY PHYSICIAN: Manjit Gomez MD ATTENDING PHYSICIAN: Hector Pritchard. Chest x-ray on admission, the official report is pending. Based on my review, no obvious infiltrate or effusion. CT pulmonary angiogram on admission showed no pulmonary embolism. Bibasilar subsegmental atelectasis. No evidence of heart failure or pneumonia. Chronic compression fractures with accentuated thoracic kyphosis. Normal heart size. Chronic sternal fracture. ASSESSMENT/PLAN: 1. Left proximal femur fracture status post mechanical fall: Per Orthopedic Surgery, regarding surgery. Pain medication per Orthopedic Surgery. DVT prophylaxis per Orthopedic Surgery. 2. Regarding his preoperative medical clearance for surgery: Currently, not yet medically cleared due to acute hypoxemic respiratory failure requiring 10 L of face mask to reach the saturation of 92%. I highly suspect patient is suffering from fat emboli syndrome in the setting of left proximal femur fracture. I am not entirely convinced that his high oxygen requirement is from asthma excerbation for several reasons: Lungs are clear to auscultation, CT pulmonary angiogram did not show any pulmonary embolism or any infiltrate or any evidence of heart failure but did show some bibasilar subsegmental atelectasis. The patient is not even coughing. There is leukocytosis, but it could be reactive from the pain from the fracture. COPD or asthma exacerbation are less likely. Fat emboli is still my highest differential. Fat emboli syndrome is treated with supportive care and I will change him to high flow oxygen if necessary and eventually the fracture has to be fixed. However, he is on 10 to 13L face mask to reach 90% saturation. I am concerned he may be very difficult to get extubated and he is requring very high oxygen support via face mask as well as I am concerned about fat embolism. For these reasons, I am consulting Pulmonology for preop pulmonary clearance to see if they agree with fat emobli syndrome as the cause here and if he could safely undergo surgery and how likely he could be successfully extubated postoperatively or any additional workups or recommendations for his acute hypoxemic respiratory failure. I will defer preoperative clearance to Pulmonology for pulmonary clearance for surgery, otherwise for now, he does not have other contraindication for surgery at the moment. Further plan will depend on his clinical course and additional workups and consultants may be consulted if necessary, depending on his clinical course. I have expalined to family members and patient in great detail and at length that currently the patient is not yet cleared for surgery and will need to be seen by Pulmonology for preoperative pulmonary clearance first and patient and family members understood, agreed, and also requested to be seen by pulmonlogy first before proceeding iwth orthopedic surgery. As we change shift tomorrow, the medical provider who is taking over the care starting tomorrow will follow up closely with Pulmonary industrial rehabilitation consultant for preoperative pulmonary clearance for orthopedic surgery. Further plan depends on clinical course. I have explained in detail the plan of care to patient and his family members (ex- and son) at bedside and they also wish and request to have pulmonology consultation first for preoperative clearance before proceeding with orthopedic surgery. As we change shift tomorrow, the next medical provider taking over the care starting tomorrow will follow up with Pulmonology consultation for preoperative pulmonary clearance for orthopedic surgery and I will also signed out in detail in person to the medical provider who is taking over the care starting tomorrow. PATIENT'S NAME: LENY GALLEGOS [facility] AGE: 71 Y [address] ROOM: [address] [address] LOCATION: [facility] ADMIT DATE: 11/27/2016 Consultation DISCHARGE DATE: FAMILY PHYSICIAN: Manjit Gomez MD ATTENDING PHYSICIAN: Hector Pritchard In the setting of known history of asthma, I am going to treat him with nebulization with Xopenex plus Atrovent every 6 hours while awake for 48 hours and then titrate by RT for RSS in combination also giving Xopenex nebulization q.2 hours p.r.n. for shortness of breath or wheezing, also titrate by RT for RSS. The patient was using some steroid inhaler at home but could not remember the name. Therefore, I am going to give him Dulera 2 inhalations twice a day. Regarding his cardiac problems, at the moment, he does not have active contraindication from cardiac standpoint to prevent him from undergoing the surgery. He does have poor functional baseline with the METS score less than 4, but his EKG is paced, and his pacemaker was interrogated just last year in May 2016, at Dr. Hlalman's office according to the patient, and it was normal. The patient never had a heart attack, never had a history of heart failure, and never complained of chest pain on exertion or at rest. The first set of troponin, CK, CK-MB are normal. There is no finding of heart failure. The patient does not have any active cardiac contraindication at the moment for surgery clearance. 3. Regarding his history of paroxysmal atrial fibrillation: Currently, he is paced and in sinus. Continue his Rythmol. He was on aspirin at home. I will hold that for now in anticipation for surgery when he gets medically cleared by Pulmonology from the pulmonary standpoint. He is not on a long-term anticoagulation agent. 4. Regarding his gastroesophageal reflux disease: He is already on famotidine ordered by Orthopedic Surgery Team. We will continue that. 5. High-grade second-degree AV block, status post pacemaker implantation dual-chamber [employer] in February 2013: It was already interrogated by the patient's primary flake cutter operator, Dr. Hallman, according to the patient back in May 2016 and it was normal. 6. Regarding his asthma: As mentioned before, I will start nebs and inhalers. 7. Regarding his history of severe hypotension during the right hip surgery a few years ago after getting some medication during anesthesia according to the patient: I will put a consult for anesthesiologist so they can be aware of this incident in the past and look more into it. The patient states that when he had the right hip surgery performed here in our hospital a few years ago, he was given some kind of medication during anesthesia and developed severe hypotension requiring resuscitation before the surgery could be resumed. Therefore, family members and the patient are very concerned that this time the same problem might happen again; therefore, they want to be made aware of this problem to the anesthesiologist. Therefore, I will put a consult for the anesthesiologist so they are aware and can look more into this issue. 8. History of nonobstructive coronary artery disease: He had a cardiac catheterization back in March 2013. At that time, it showed clean coronary arteries and normal left ventricle ejection fraction of 60% to 65%. The patient never had stents, never required open heart surgery. Never had a chest pain. Never was told he had a history of heart failure. Never complaining of exertional chest pain or chest pain at rest. Never complained of leg edema either. At this time, I feel the Cardiology consult is not necessary based on the guideline for the preoperative medical clearance for noncardiac surgery, given that currently he does PATIENT'S NAME: LENY GALLEGOS [facility] AGE: 71 Y [address] ROOM: [place] [address] LOCATION: [facility] ADMIT DATE: 11/27/2016 Consultation DISCHARGE DATE: FAMILY PHYSICIAN: Manjit Gomez MD ATTENDING PHYSICIAN: Hector Pritchard not have active cardiac contraindication at the moment to prevent him from undergoing Orthopedic surgery. However, further plan will depend on his clinical course in case his condition changes. 9. DVT prophylaxis: Per Orthopedic Surgery. Time spent in care on the day of consultation is 50 minutes including chart review, interviewing the patient, examining the patient, addressing all the questions and concerns the patient and family members had at the bedside. I also went over the plan of care with the patient and the nurses and also with the patient's family members. I have expalined to family members and patient that currently the patient is not yet cleared for surgery and will need to be seen by Pulmonology for preoperative pulmonary clearance first and patient and family members understood and agreed. As we change shift tomorrow, the medical provider who is taking over the care starting tomorrow will follow up closely with Pulmonary industrial rehabilitation consultant for preoperative pulmonary clearance for orthopedic surgery. Further plan depends on clinical course. I have explained in detail the plan of care to patient and his family members (ex- and son) at bedside and they also wish and request to have pulmonology consultation first for preoperative clearance before proceeding with orthopedic surgery. I will also sign out in detail in person to the next medical provider who is taking over the care starting tomorrow. Patient's condition remains the same at the end of my shift with pain in left hip, still on high oxygen requirement now 8L face mask and saturating at 96% and alert and oriented x3 without focal neurological deficits. Update: I did sign out in detail in person to Dr. Lazaro, who will be the next medical provider taking over the care starting on 11/28/16 at 8AM. MD HOWIE TONEY/kendal /[id number] d: 11/28/166 t: 12/18/16 1054, CONSULTATION REPORT
--- NOTE | ~2016-11-27 | ENPV ---
Vascular Lower Extremities DVT Study Procedure Demographics Patient Name LENY GALLEGOS Date of Study 11/29/2016 Patient Number [id number] Gender Male Date of 1945 Age 71 Visit Number [id number] Height 65 Accession Number [id number] Weight 156 Referring Dana Mehta Interpreting [facility] Physician Physician Leslee Ricketts Physician Ordering Physician Brooch And Bracelet Maker Radius Grinder Rufina Bo, RT,RVT,RDCS Tian Lara RVT, RDCS Conclusions Summary Poor positioning but no evidence or indication of DVT in right lower extremity. 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 Allergies - Chocolate. Velocities are measured in cm/s ; Diameters are measured in cm Right Lower Extremities DVT Study Measurements Right 2D and Doppler Measurements + + + + +------+------+ + !Location !Visualized!Compressibility!Thrombosis!Signal!Reflux!Reflux ! ! ! ! ! ! ! !(sec) ! + + + + +------+------+ + !GSV Thigh !Yes !Yes !None !Phasic!No ! ! + + + + +------+------+ + !Common !Yes !Yes !None !Phasic!No ! ! !Femoral ! ! ! ! ! ! ! + + + + +------+------+ + !Prox !Yes !Yes !None !Phasic!No ! ! !Femoral ! ! ! ! ! ! ! + + + + +------+------+ + !Mid Femoral!Yes !Yes !None !Phasic!No ! ! + + + + +------+------+ + !Dist !Yes !Yes !None !Phasic!No ! ! !Femoral ! ! ! ! ! ! ! + + + + +------+------+ + !Popliteal !Yes !Yes !None !Phasic!No ! ! + + + + +------+------+ + !Gastroc !Yes !Yes !None !Phasic!No ! ! + + + + +------+------+ + !PTV !Yes !Yes !None !Phasic!No ! ! + + + + +------+------+ + !Peroneal !Yes !Yes !None !Phasic!No ! ! + + + + +------+------+ + Left Lower Extremities DVT Study Measurements Left 2D and Doppler Measurements + + + + +------+------+ + !Location !Visualized!Compressibility!Thrombosis!Signal!Reflux!Reflux ! ! ! ! ! ! ! !(sec) ! + + + + +------+------+ + !GSV Thigh !Yes !Yes !None !Phasic!No ! ! + + + + +------+------+ + !Common !Yes !Yes !None !Phasic!No ! ! !Femoral ! ! ! ! ! ! ! + + + + +------+------+ + !Prox !Yes !Yes !None !Phasic!No ! ! !Femoral ! ! ! ! ! ! ! + + + + +------+------+ + !Mid Femoral!Yes !Yes !None !Phasic!No ! ! + + + + +------+------+ + !Dist !Yes !Yes !None !Phasic!No ! ! !Femoral ! ! ! ! ! ! ! + + + + +------+------+ + !Popliteal !Yes !Yes !None !Phasic!No ! ! + + + + +------+------+ + !Gastroc !Yes !Yes !None !Phasic!No ! ! + + + + +------+------+ + !PTV !Yes !Yes !None !Phasic!No ! ! + + + + +------+------+ + !Peroneal !Yes !Yes !None !Phasic!No ! ! + + + + +------+------+ + Impressions Right Impression Poor positioning but no evidence or indication of DVT in right lower extremity. 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
--- NOTE | ~2016-11-27 | PN ---
PATIENT'S NAME: LENY GALLEGOS [facility] AGE: 71 Y [address] ROOM: [address] [address] LOCATION: [facility] ADMIT DATE: 11/27/2016 Progress Notes DISCHARGE DATE: FAMILY PHYSICIAN: Manjit Gomez MD ATTENDING PHYSICIAN: Hector Pritchard DATE OF SERVICE: 12/09/2016 ADDENDUM: This patient has continued labored breathing. I have discussed with the family yesterday about power of trade show manager. I think this is very important as staff is unclear whether or not to intubate should his breathing become more labored and compromised. MD ELA HARRIS/kendal /[id number] d: 12/09/16615 t: 12/13/16 1824, PROGRESS NOTES
--- NOTE | ~2016-11-27 | CON ---
PATIENT'S NAME: LENY BAE [facility] AGE: 71 Y [address] ROOM: [address] [address] LOCATION: [facility] ADMIT DATE: 11/27/2016 Consultation DISCHARGE DATE: FAMILY PHYSICIAN: Manjit Gomez MD ATTENDING PHYSICIAN: Hector Pritchard REFERRING PHYSICIAN: JANNY ERICKSON MD REASON FOR CONSULTATION: Stroke. HISTORY OF PRESENT ILLNESS: Mr. Bae is a 71-year-old man with a past medical history of baseline right foot drop related to a prior hip surgery. He also has ischemic heart disease, gastroesophageal reflux, pacemaker, PAF, sick sinus syndrome, asthma, colitis, degenerative joint disease, and osteoarthritis. He has chronic mobility issues related to his previous foot drop. On the day of admission, he was attempting to climb steps, fell back, and landed on his left side, fracturing his left femur. He did not hit his head at the time of the event and did not lose consciousness. He was, therefore, transferred to [facility] to be evaluated for possible femur fracture repair. There was some question regarding potential fat emboli and therefore on admission, he was evaluated for medical clearance for surgery. During the course of his hospital stay, he was found to be hypoxic and Pulmonary Services became involved in his care. The surgery was therefore delayed a day, related to the hypoxia, because of the increased risk of events during surgery and the additional fact that he had a cardiac arrest during his previous surgery, several years ago, for the repair of the right hip. Overnight, the patient was seen by a staff at approximately 3:05 a.m., during routine rounds, and requested pain medication. At that time, he received 2 mg of IV morphine. He was checked again at 6 o'clock in the morning; at that time, he appeared to be sleeping and was not attempted to be arisen by the staff. At 7:30, during morning rounds, it was noted that he was flaccid on the right side and not moving his left side. Evaluation was immediately begun, and the patient had a CAT scan done of the brain at approximately 8:30 in the morning. This showed an area of infarct that appeared subacute to chronic, in the right posterior parietal-temporal lobe and to my eye a new area of emerging infarct in the temporal lobe and posterior parietal lobe in the left brain. Neurology was called for consults later in the morning and upon evaluation, noted the right hemiplegia and mutism. PHYSICAL EXAMINATION: 1. An NIH stroke scale was performed and is as follows:. a. Level of consciousness, arouses to minor stimulation. b. Month and age, aphasic. c. Unable to follow commands. PATIENT'S NAME: LENY BAE [facility] AGE: 71 Y [address] ROOM: [place] [address] LOCATION: [facility] ADMIT DATE: 11/27/2016 Consultation DISCHARGE DATE: FAMILY PHYSICIAN: Manjit Gomez MD ATTENDING PHYSICIAN: Hector Pritchard 2. He has a partial gaze palsy to the left. 3. Visual field due to hemianopia on the right side. 4. No facial asymmetry. 5. Normal left arm, no movement in the right arm. 6. Some effort against gravity in the left leg. No effort against gravity in the right leg. 7. Unable to assess ataxia. 8. Ufhy-lb-qzsmaqxt sensory loss. 9. Globally aphasic. 10. Mute. 11. Extinction on the right side for a total NIH stroke scale of 24. ASSESSMENT AND PLAN: Mr. 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 The etiology of his stroke is unclear as he does have significant cardiac issues including a history of paroxysmal atrial fibrillation, per the record, and an echocardiogram performed showed PFO, leading also to the possibility of a fat emboli crossing through the patent foramen ovale and causing cerebral ischemia. There is no particular way to know the difference between the two or the chances of one over the other. I therefore recommend a stat CT angiogram to see if there is a potential proximal thrombus in the carotid artery or M1 segment along with a CT perfusion study, if available, to assess the potential possibility of a penumbra. For now, I recommend aspirin suppository along with lipid panel. He should further have physical, occupational, and speech therapy evaluations in addition to the above studies. We were called to the bedside at approximately 9:30 a.m., and he was last seen normal at approximately 3:00 a.m., making IV tPA contraindicated. Further, recent hip fracture is also a contraindication to tPA, especially in light of the unrepaired fracture. Unfortunately, a routine stroke evaluation is all that is an option at this point, as now we are more than 6 hours from last seen normal and therefore intervention is not recommended either. Thanks very much for allowing us to participate in the care of this patient. We will follow along while he is in the hospital. MD NELA JENKINS/kendal PATIENT'S NAME: LENY BAE [facility] AGE: 71 Y [address] ROOM: [place] [address] LOCATION: [facility] ADMIT DATE: 11/27/2016 Consultation DISCHARGE DATE: FAMILY PHYSICIAN: Manjit Gomez MD ATTENDING PHYSICIAN: Hector Pritchard /[id number] d: t: 11/29/16 1511, CONSULTATION REPORT
--- NOTE | ~2016-11-27 | PN ---
PATIENT'S NAME: LENY GALLEGOS [facility] AGE: 71 Y [address] ROOM: [place] [address] [address]ATION: [facility] ADMIT DATE: 11/27/2016 Progress Notes DISCHARGE DATE: FAMILY PHYSICIAN: Manjit Gomez MD ATTENDING PHYSICIAN: Hector Pritchard DATE OF SERVICE: 12/07/2016 This is a patient in the Neuro trauma Unit who has had a hip fracture with fat embolus, CVA, and myocardial infarction. Has a pacemaker and was for a percutaneous endoscopic gastrostomy today, but apparently yesterday at his heart catheterization he aspirated and it was decided by his medical doctors to hold off on this until he becomes more evaluated on his pulmonary situation. He had laboratory values today which showed reasonable electrolytes. BUN and creatinine satisfactory. [place] white count was [id number], hematocrit 31.2. Plan is for pulmonary toilet and bronchoscopy and will have percutaneous endoscopic gastrostomy when appropriate. He has been placed on Flagyl for an additional antibiotic from Rocephin. MD ELA HARRIS/kendal /[id number] d: 12/07/16 1254 t: 12/13/16 1818, PROGRESS NOTES
--- NOTE | ~2016-11-27 | CON ---
PATIENT'S NAME: LENY GALLEGOS [facility] AGE: 71 Y [address] ROOM: [address] [address] LOCATION: T ADMIT DATE: 11/27/2016 Consultation DISCHARGE DATE: FAMILY PHYSICIAN: Manjit Gomez MD ATTENDING PHYSICIAN: Hector Pritchard DATE OF CONSULTATION: 11/29/2016 REFERRING PHYSICIAN: JANNY ERICKSON MD PATIENT OF: Hilda Lazaro MD Dear Dr. Lazaro, Thank you for asking me to see Mr. Gallegos who is a 71-year-old male patient of Dr. Hallman, who had an accidental fall at home and fractured his left hip. It is a proximal left femoral fracture. The patient had this fall almost purely accidentally and is not due to a syncope or presyncope. He has chronic unstable gait from right lower extremity weakness after right hip surgery which resulted in right footdrop in 2005 or so. He also has some difficulty with his left lower extremity and he has a tendency to fall. The patient has a history of second-degree AV block and permanent pacemaker placement with a dual chamber pacemaker. When last seen in May, the pacemaker was functioning well. He also has a history of atrial fibrillation for which he is on Rythmol. I do not see where he is on any Coumadin. His CHADS2-VASc score is probably 1 at this time. There is no history of congestive heart failure, heart murmur, or rheumatic fever. There is no prior history of CO. The patient has history of cardiac catheterization in 2012, at which time his EF was normal, and had no significant abnormalities of coronary artery disease. There is no history of hypertension or diabetes. His cholesterol is unknown. He has never smoked and there is no significant family history of premature coronary artery disease. There is no prior history of chest pains. He has been quite limited by his lower extremities to the point where he probably just got around the house at best. He is not on any structured exercise program before this and like I mentioned, he has been having several falls in the past as well. His functional class is probably 2-3. There is no paroxysmal nocturnal dyspnea or orthopnea. He denies lightheadedness, dizziness, syncope, or ankle swelling. [facility]GE[facility] 71 Y [address] ROOM: [place] [address] LOCATION: [facility] ADMIT DATE: 11/27/2016 Consultation DISCHARGE DATE: FAMILY PHYSICIAN: Manjit Gomez MD ATTENDING PHYSICIAN: Hector Pritchard After his hospitalization, it was felt that he had a stroke yesterday. This morning, the stroke was clearly worse. Workup has shown that he has probably ASD or PFO along with stroke as well. There is some concern that initially he was hypoxic and the concern is for fat embolism. MEDICATIONS: 1. Fish oil. 2. Multivitamins. 3. Calcium carbonate. 4. Zyrtec. 5. Gabapentin 400 mg t.i.d. 6. Blue Bell 5/325 1.5 every 6 hours. 7. Metoclopramide 10 mg at bedtime. 8. Nabumetone 750 mg a day. 9. Omeprazole 40 mg a day. 10. Rythmol 150 mg t.i.d. 11. Topamax 25 mg at bedtime. 12. Fluticasone nasal spray. 13. Albuterol inhaler. 14. Aspirin 81 mg a day. 15. Ascorbic acid 500 mg a day. 16. Imitrex 100 mg for migraine. 17. Systane eyedrops. ALLERGIES: PENICILLIN, CARBENICILLIN, AND A CHOCOLATE FLAVOR. PAST MEDICAL HISTORY: 1. History of cholecystectomy. 2. Right total knee replacement. 3. Right total hip replacement, at which time he had hypotension. 4. Left carpal tunnel syndrome. 5. History of asthma. 6. Gastroesophageal reflux disease. 7. Hiatal hernia. SOCIAL HISTORY: The patient denies abusing alcohol or cigarettes. He usually walks with a cane. His appetite and weight have been stable. Sleep is fair. FAMILY HISTORY: Father had CO at the age of 40, but he had also leukemia at the same time. REVIEW OF SYSTEMS: PATIENT'S NAME: LENY GALLEGOS [facility] AGE: 71 Y [address] ROOM: [place] [address] LOCATION: [facility] ADMIT DATE: 11/27/2016 Consultation DISCHARGE DATE: FAMILY PHYSICIAN: Manjit Gomez MD ATTENDING PHYSICIAN: Hector Pritchard Difficult to obtain as the patient is currently not able to verbalize anything from the stroke. PHYSICAL EXAMINATION: VITAL SIGNS: His blood pressure is 140/80, heart rate is 90 and appears to be A sensed V paced mode, respirations 20, afebrile, and oxygen saturation is 93% on oxygen. HEENT. Pale. NECK: Supple. HEART: PMI, first and second heart sounds are regular. There are no added sounds or murmurs. CHEST: Clear to auscultation. Abdomen: Soft. EXTREMITIES: No edema. CENTRAL NERVOUS SYSTEM: Reveals CVA. ASSESSMENT: 1. Right proximal femoral fracture complicated by possible fat embolism as he was hypoxic post fracture. He also unfortunately had a stroke and he has a patent foramen ovale which makes it likely that his stroke would have been caused by the fat embolism per se. Initially, he was hypoxic as mentioned earlier. The stroke has seemed to have extended later on. I am asked to see him because of the prior history of atrial fibrillation and there is no indication that he has ever been on Coumadin. We will get hold of his old cardiac catheterization report. 2. Deep venous thrombosis prophylaxis. 3. Protonix. 4. We will check to see if there is any fat in his urine. We will plan on getting an EKG and troponin along with proBNP before he is cleared for sure. Again, I appreciate this opportunity to participate in the care of Mr. Gallegos. MD DE MARVIN/kendal /[id number] d: 11/29/16 2216 t: 12/10/16 1233, CONSULTATION REPORT
--- NOTE | ~2016-11-27 | ECHO ---
Transthoracic Echocardiography Report (TTE) Demographics Patient Name LENY GALLEGOS Date of Study 11/29/2016 Patient Number [id number] Visit Number [id number] Date of 1945 Room Number G6223 Gender Male Number Age 71 year(s) Referring Susan Blackburn MD Tapper [employer] Rufina Bo, Physician RT,RVT,RDCS Physician Interpreting Ericka Chua MD [employer] Specialist Physician Supervising Ordering Susan Blackburn MD, MD/MLP Physician Nurse Stress Tablet Repair Conclusions Contractility Score Summary At rest the following contractility abnormalities were noted: Hypokinesis of the Apical septal, the Apical lateral, the Apical anterior and the Apical cap segments. Contractility of all other segments appeared normal. Summary TDS.Off axis views.No LV short axis.No doppler evaluation of the IAS. Mild to moderate concentric left ventricular hypertrophy.LV internal dimension is normal.LVEF is probably 40%.RWMAs cannot be confidently commented on. Upon injection of bubbles both atria immediately filled with bubbles and seen in LV and aorta within a couple of beats. Procedure Type of Study TTE procedure:Echo with Contrast. Procedure Date Date: 11/29/2016 Start: 07:39 AM Study Location: Inpatient Portable Technical Quality: Limited visualization due to body habitus. Indications:Pre surgical clearance. Additional Indications:HYPOXIA Appropriate Use Criteria: 9 Patient Status: Routine Rhythm: Paced HR: 82 bpm BP: 174/65 mmHg Allergies - Chocolate. M-Mode/2D Measurements LV Diastolic Dimension: 4.06 cm LV Systolic Dimension: 2.95 cm LV Septum Diastolic: 1.64 cm LV PW Diastolic: 1.56 cm AO Root Dimension: 3.2 cm Cardiac Output: 6.64 l/min AV Cusp Separation: 1.4 cm LA Dimension: 3.2 cm EF Estimated: 50 % LVOT: 2.1 cm LVOT VTI: 23.4 cm LV Stroke volume: 81.01 ml Doppler Measurements AV Peak Velocity: 1.16 m/s MV Peak E-Wave: 0.89 m/s AV Peak Gradient: 5.38 mmHg AV Mean Gradient: 3 mmHg LVOT Peak Velocity: 1.08 m/s PV Peak Velocity: 1.34 m/s TR Velocity:1.1 m/s PV Peak Gradient: 7.18 mmHg TR Gradient:4.84 mmHg Estimated PASP: 14.84 mmHg Estimated RAP:10 mmHg A' Septal Velocity: 0.11 m/s Estimated RVSP: 15 mmHg E' Septal Velocity: 0.06 m/s Findings Left Ventricle Moderate concentric left ventricular hypertrophy.Difficult to comment on EF or WM as no short axis view of the LV is available.LVEF is probably about 40%.LV size is normal. Right Ventricle Normal right ventricle structure and function. Left Atrium Normal left atrial size. Right Atrium Normal right atrial size. No interatrial communication seen, however, upon injection of bubbles both atria immediately filled with bubbles and they are seen in LV and aorta within a couple of beats. Mitral Valve Normal mitral valve structure and function. Aortic Valve Normal aortic valve structure and function. Tricuspid Valve Normal tricuspid valve structure and function. Pulmonic Valve Normal pulmonic valve structure and function. Pericardial Effusion No evidence of pericardial effusion. Miscellaneous No subcostal window. Pleural Effusion No evidence of pleural effusion. Contractility Score LV regional wall motion:(0-Non visualized 1-Normal 2-Hypokinesis 3-Akinesis 4-Dyskinesis 5-Aneurysm) Signature dtt: Toma Barnett dtd: 11/29/16 0739 Physician Self Edit
[2016-11-27 20:08] LABS: BASOPHIL % 0.1 %; EOSINOPHIL # 0.1 K/uL (0.0-0.5); EOSINOPHIL % 0.4 %; HEMATOCRIT 36.1 % (37.0-53.0); HEMOGLOBIN 12.4 g/dL (11.0-16.0); IMMATURE GRANULOCYTE # 0.1 K/uL (0.0-0.3); IMMATURE GRANULOCYTE % 0.4 %; LYMPHOCYTE # 0.6 K/uL (0.8-4.0); LYMPHOCYTE % 4.1 %; MCH 32.2 pg (27.0-34.0); MCHC 34.3 gm/dL (32.0-36.5); MCV 93.8 fl (83.0-98.0); MONOCYTE # 0.7 K/uL (0.0-1.0); MONOCYTE % 4.9 %; MPV 9.3 fl (9.4-12.4); NEUTROPHIL # (ANC) 12.6 K/uL (1.4-9.0); NEUTROPHIL % 90.1 %; NRBC % 0 /100WBC (0-0.00); PLATELET COUNT 191 K/uL (150-450); RBC 3.85 M/uL (3.50-5.50); RDW-CV 12.2 % (11.9-14.6)
[2016-11-27 20:15] LABS: INR - (THERAPEUTIC) 1.1 (0.9-1.1); PROTIME 11.4 SECONDS (9.6-11.1); PTT 25 SECONDS (25-32)
[2016-11-27 20:31] LABS: BICARBONATE 22.5 mmol/L (18.0-23.0); LACTATE 1.8 mEq/L (0.50-1.60); PCO2 39 mmHg (35-45); PO2 64 mmHg (80-90)
[2016-11-27 20:33] LABS: ALBUMIN 2.9 gm/dL (3.5-5.0); ALK PHOS 66 IU/L (33-138); ALT 20 IU/L (12-78); ANION GAP 12.7 (10.0-19.0); AST 26 IU/L (10-40); BLOOD UREA NITROGEN 16 mg/dL (6-24); CALCIUM 8.2 mg/dL (8.5-10.5); CHLORIDE 112 mMol/L (96-110); CO2 24 mMol/L (22-32); CPK 115 IU/L (35-332); CREATININE 0.9 mg/dL (0.6-1.3); ESTIMATED GFR (MDRD EQUATION) > 60; POTASSIUM 3.7 mMol/L (3.7-5.1); SODIUM 145 mMol/L (135-145); TOTAL BILIRUBIN 0.5 mg/dL (0.0-1.5); TOTAL PROTEIN 5.6 g/dL (6.0-8.4)
[2016-11-27 20:59] LABS: BILIRUBIN URINE NEGATIVE (NEGATIVE); BLOOD URINE NEGATIVE /UL (NEGATIVE); COLOR URINE YELLOW (YELLOW); GLUCOSE URINE NEGATIVE (NEGATIVE); KETONE URINE 5 mg/dL (NEGATIVE); LEUKOCYTES URINE 25 /UL (NEGATIVE); NITRITE URINE NEGATIVE (NEGATIVE); PROTEIN URINE 15 mg/dL (NEGATIVE); SPEC GRAVITY URINE 1.025 (1.003-1.035); TURBIDITY URINE CLEAR (CLEAR); UROBILINOGEN URINE NORMAL (NORMAL)
[2016-11-27 21:05] LABS: BACTERIA URINE RARE (NEGATIVE); EPITHELIAL URINE 0-2 #/HPF (NEGATIVE); RBC URINE 0-2 #/HPF (NEGATIVE); WBC URINE 0-2 #/HPF (NEGATIVE)
[2016-11-28 04:33] LABS: HEMATOCRIT 32.9 % (37.0-53.0); HEMOGLOBIN 11.3 g/dL (11.0-16.0); MCH 32.5 pg (27.0-34.0); MCHC 34.3 gm/dL (32.0-36.5); MCV 94.5 fl (83.0-98.0); MPV 9.9 fl (9.4-12.4); RBC 3.48 M/uL (3.50-5.50); RDW-CV 12.5 % (11.9-14.6)
[2016-11-28 04:54] LABS: ANION GAP 13.3 (10.0-19.0); BLOOD UREA NITROGEN 16 mg/dL (6-24); CALCIUM 8.7 mg/dL (8.5-10.5); CHLORIDE 110 mMol/L (96-110); CO2 23 mMol/L (22-32); CREATININE 0.9 mg/dL (0.6-1.3); ESTIMATED GFR (MDRD EQUATION) > 60; PHOSPHORUS 3.4 mg/dL (2.5-4.9); POTASSIUM 4.3 mMol/L (3.7-5.1); SODIUM 142 mMol/L (135-145)
[2016-11-28] MEDS ORDERED: FISH OIL 1,2001 EACH PO (08:02)
[2016-11-28] MEDS ORDERED: TUMS REGULAR ST1 TAB PO (08:03)
[2016-11-28] MEDS ORDERED: ZYRTEC10 MG PO (08:03)
[2016-11-28] MEDS ORDERED: THERA-VITE W/ B1 TAB PO (08:03)
[2016-11-28] MEDS ORDERED: NEURONTIN400 MG PO (08:03)
[2016-11-28] MEDS ORDERED: NORCO 5-325 TA1 EACH PO (08:04)
[2016-11-28] MEDS ORDERED: REGLAN10 MG PO (08:04)
[2016-11-28] MEDS ORDERED: NABUMETONE750 MG PO (08:05)
[2016-11-28] MEDS ORDERED: RYTHMOL150 MG PO (08:05)
[2016-11-28] MEDS ORDERED: OMEPRAZOLE40 MG PO (08:05)
[2016-11-28] MEDS ORDERED: TOPAMAX25 MG PO (08:06)
[2016-11-28] MEDS ORDERED: FLONASE 50 MCG/16 GM NOSE (08:06)
[2016-11-28] MEDS ORDERED: ASCORBIC ACID500 MG PO (08:07)
[2016-11-28] MEDS ORDERED: PROVENTIL OR V6.7 GM INH (08:07)
[2016-11-28] MEDS ORDERED: ASPIR 8181 MG PO (08:07)
[2016-11-28] MEDS ORDERED: SYSTANE 0.3-0.440 ML OPHTH (08:08)
[2016-11-28] MEDS ORDERED: IMITREX100 MG PO (08:08)
[2016-11-29 04:36] LABS: BASOPHIL % 0.2 %; EOSINOPHIL # 0.4 K/uL (0.0-0.5); EOSINOPHIL % 4.7 %; HEMATOCRIT 27.8 % (37.0-53.0); HEMOGLOBIN 9.4 g/dL (11.0-16.0); IMMATURE GRANULOCYTE # 0.1 K/uL (0.0-0.3); IMMATURE GRANULOCYTE % 0.8 %; LYMPHOCYTE % 12.2 %; MCH 32.5 pg (27.0-34.0); MCHC 33.8 gm/dL (32.0-36.5); MCV 96.2 fl (83.0-98.0); MONOCYTE # 0.7 K/uL (0.0-1.0); MPV 9.7 fl (9.4-12.4); NEUTROPHIL % 73.1 %; NRBC % 0 /100WBC (0-0.00); RBC 2.89 M/uL (3.50-5.50); RDW-CV 12.6 % (11.9-14.6); WBC 8.3 K/uL (4.0-11.0)
[2016-11-29 04:46] LABS: PLATELET COUNT 141 K/uL (150-450)
[2016-11-29 04:52] LABS: ALBUMIN 2.4 gm/dL (3.5-5.0); BLOOD UREA NITROGEN 22 mg/dL (6-24); CHLORIDE 110 mMol/L (96-110); CO2 27 mMol/L (22-32); CREATININE 0.9 mg/dL (0.6-1.3); ESTIMATED GFR (MDRD EQUATION) > 60; PHOSPHORUS 3.4 mg/dL (2.5-4.9); SODIUM 144 mMol/L (135-145)
[2016-11-30 05:28] LABS: BASOPHIL % 0.2 %; EOSINOPHIL % 0.4 %; HEMATOCRIT 24.7 % (37.0-53.0); HEMOGLOBIN 8.3 g/dL (11.0-16.0); IMMATURE GRANULOCYTE # 0.1 K/uL (0.0-0.3); IMMATURE GRANULOCYTE % 0.7 %; LYMPHOCYTE # 0.6 K/uL (0.8-4.0); LYMPHOCYTE % 6.3 %; MCH 32.5 pg (27.0-34.0); MCHC 33.6 gm/dL (32.0-36.5); MCV 96.9 fl (83.0-98.0); MONOCYTE # 0.7 K/uL (0.0-1.0); MONOCYTE % 7.4 %; NEUTROPHIL # (ANC) 7.6 K/uL (1.4-9.0); NRBC % 0 /100WBC (0-0.00); PLATELET COUNT 157 K/uL (150-450); RBC 2.55 M/uL (3.50-5.50); RDW-CV 12.5 % (11.9-14.6); WBC 8.9 K/uL (4.0-11.0)
[2016-11-30 05:44] LABS: ALBUMIN 2.3 gm/dL (3.5-5.0); ANION GAP 11.7 (10.0-19.0); BLOOD UREA NITROGEN 13 mg/dL (6-24); CALCIUM 7.6 mg/dL (8.5-10.5); CHLORIDE 112 mMol/L (96-110); CO2 25 mMol/L (22-32); CREATININE 0.6 mg/dL (0.6-1.3); ESTIMATED GFR (MDRD EQUATION) > 60; PHOSPHORUS 2.2 mg/dL (2.5-4.9); POTASSIUM 3.7 mMol/L (3.7-5.1); SODIUM 145 mMol/L (135-145)
[2016-12-01 05:12] LABS: BASOPHIL % 0.1 %; EOSINOPHIL % 0.5 %; HEMATOCRIT 21.5 % (37.0-53.0); IMMATURE GRANULOCYTE % 0.5 %; LYMPHOCYTE # 0.6 K/uL (0.8-4.0); LYMPHOCYTE % 8.1 %; MCH 32.6 pg (27.0-34.0); MCHC 33.5 gm/dL (32.0-36.5); MCV 97.3 fl (83.0-98.0); MONOCYTE # 0.6 K/uL (0.0-1.0); MONOCYTE % 8.3 %; MPV 9.6 fl (9.4-12.4); NEUTROPHIL # (ANC) 6.3 K/uL (1.4-9.0); NEUTROPHIL % 82.5 %; NRBC % 0 /100WBC (0-0.00); PLATELET COUNT 166 K/uL (150-450); RBC 2.21 M/uL (3.50-5.50); RDW-CV 12.7 % (11.9-14.6); WBC 7.6 K/uL (4.0-11.0)
[2016-12-01 05:14] LABS: HEMOGLOBIN 7.2 g/dL (11.0-16.0)
[2016-12-01 05:22] LABS: ANION GAP 12.4 (10.0-19.0); BLOOD UREA NITROGEN 14 mg/dL (6-24); CHLORIDE 113 mMol/L (96-110); CO2 24 mMol/L (22-32); CREATININE 0.6 mg/dL (0.6-1.3); ESTIMATED GFR (MDRD EQUATION) > 60; POTASSIUM 3.4 mMol/L (3.7-5.1)
[2016-12-01 05:23] LABS: SODIUM 146 mMol/L (135-145)
[2016-12-01 20:11] LABS: HEMATOCRIT 23.8 % (37.0-53.0); HEMOGLOBIN 8.1 g/dL (11.0-16.0)
[2016-12-02 06:53] LABS: MPV 9.5 fl (9.4-12.4); WBC 9.4 K/uL (4.0-11.0)
[2016-12-02 06:56] LABS: MCH 31.3 pg (27.0-34.0)
[2016-12-02 06:57] LABS: HEMATOCRIT 29.1 % (37.0-53.0); MCHC 34.4 gm/dL (32.0-36.5); MCV 90.9 fl (83.0-98.0); PLATELET COUNT 212 K/uL (150-450)
[2016-12-02 07:09] LABS: ANION GAP 12.5 (10.0-19.0); BLOOD UREA NITROGEN 16 mg/dL (6-24); CALCIUM 7.9 mg/dL (8.5-10.5); CHLORIDE 111 mMol/L (96-110); CO2 26 mMol/L (22-32); CREATININE 0.5 mg/dL (0.6-1.3); ESTIMATED GFR (MDRD EQUATION) > 60; POTASSIUM 3.5 mMol/L (3.7-5.1)
[2016-12-02 07:16] LABS: SODIUM 146 mMol/L (135-145)
[2016-12-02 07:37] LABS: ABSOLUTE NEUTROPHIL CT (ANC) 7.6 K/uL (1.4-9.0); BANDED NEUTROPHIL # 0.1 K/uL (0.0-0.1); BANDED NEUTROPHILS % 1 %; LYMPHOCYTE % 11 %; MONOCYTE # 0.5 K/uL (0.0-1.0); SEGMENTED NEUTROPHIL # 7.5 K/uL (1.4-9.0); SEGMENTED NEUTROPHIL % 80 %
[2016-12-03 04:18] LABS: HEMATOCRIT 29.4 % (37.0-53.0); HEMOGLOBIN 9.8 g/dL (11.0-16.0); MCH 30.8 pg (27.0-34.0); MCHC 33.3 gm/dL (32.0-36.5); MCV 92.5 fl (83.0-98.0); MPV 9.5 fl (9.4-12.4); PLATELET COUNT 239 K/uL (150-450); RBC 3.18 M/uL (3.50-5.50); WBC 9.7 K/uL (4.0-11.0)
[2016-12-03 04:30] LABS: ANION GAP 12.6 (10.0-19.0); BLOOD UREA NITROGEN 22 mg/dL (6-24); CALCIUM 8.1 mg/dL (8.5-10.5); CHLORIDE 113 mMol/L (96-110); CO2 27 mMol/L (22-32); CREATININE 0.6 mg/dL (0.6-1.3); ESTIMATED GFR (MDRD EQUATION) > 60; MAGNESIUM 2.4 mg/dL (1.3-2.6); POTASSIUM 3.6 mMol/L (3.7-5.1)
[2016-12-03 04:51] LABS: SODIUM 149 mMol/L (135-145)
[2016-12-03 05:52] LABS: BANDED NEUTROPHIL # 1.8 K/uL (0.0-0.1); BANDED NEUTROPHILS % 19 %; LYMPHOCYTE # 0.7 K/uL (0.8-4.0); LYMPHOCYTE % 7 %; SEGMENTED NEUTROPHIL # 7.2 K/uL (1.4-9.0); SEGMENTED NEUTROPHIL % 74 %
[2016-12-03 13:40] LABS: BLOOD URINE 10 /UL (NEGATIVE); COLOR URINE AMBER (YELLOW); GLUCOSE URINE NEGATIVE (NEGATIVE); KETONE URINE 5 mg/dL (NEGATIVE); LEUKOCYTES URINE 100 /UL (NEGATIVE); NITRITE URINE NEGATIVE (NEGATIVE); PROTEIN URINE 30 mg/dL (NEGATIVE); SPEC GRAVITY URINE 1.015 (1.003-1.035); TURBIDITY URINE CLEAR (CLEAR); UROBILINOGEN URINE 8 mg/dL (NORMAL)
[2016-12-03 13:56] LABS: BACTERIA URINE FEW (NEGATIVE); EPITHELIAL URINE RARE #/HPF (NEGATIVE); RBC URINE RARE #/HPF (NEGATIVE)
[2016-12-03 16:15] LABS: PCO2 36 mmHg (35-45); PO2 58 mmHg (80-90)
[2016-12-03 16:16] LABS: BICARBONATE 29.4 mmol/L (18.0-23.0)
[2016-12-04 10:52] LABS: ANION GAP 9.5 (10.0-19.0); BLOOD UREA NITROGEN 25 mg/dL (6-24); CHLORIDE 115 mMol/L (96-110); CO2 29 mMol/L (22-32); CREATININE 0.6 mg/dL (0.6-1.3); ESTIMATED GFR (MDRD EQUATION) > 60; POTASSIUM 3.5 mMol/L (3.7-5.1)
[2016-12-04 10:53] LABS: SODIUM 150 mMol/L (135-145)
[2016-12-05 04:07] LABS: BASOPHIL % 0.1 %; EOSINOPHIL # 0.3 K/uL (0.0-0.5); EOSINOPHIL % 2.8 %; HEMOGLOBIN 9.3 g/dL (11.0-16.0); IMMATURE GRANULOCYTE # 0.1 K/uL (0.0-0.3); IMMATURE GRANULOCYTE % 0.7 %; LYMPHOCYTE # 0.6 K/uL (0.8-4.0); LYMPHOCYTE % 6.7 %; MCH 30.6 pg (27.0-34.0); MCHC 32.1 gm/dL (32.0-36.5); MCV 95.4 fl (83.0-98.0); MONOCYTE # 0.4 K/uL (0.0-1.0); MONOCYTE % 4.5 %; MPV 9.4 fl (9.4-12.4); NEUTROPHIL # (ANC) 8.2 K/uL (1.4-9.0); NEUTROPHIL % 85.2 %; NRBC % 0 /100WBC (0-0.00); RBC 3.04 M/uL (3.50-5.50); RDW-CV 14.6 % (11.9-14.6); WBC 9.6 K/uL (4.0-11.0)
[2016-12-05 04:18] LABS: ANION GAP 12.6 (10.0-19.0); BLOOD UREA NITROGEN 18 mg/dL (6-24); CALCIUM 8.3 mg/dL (8.5-10.5); CHLORIDE 115 mMol/L (96-110); CO2 24 mMol/L (22-32); CREATININE 0.5 mg/dL (0.6-1.3); ESTIMATED GFR (MDRD EQUATION) > 60; POTASSIUM 3.6 mMol/L (3.7-5.1)
[2016-12-05 04:19] LABS: SODIUM 148 mMol/L (135-145)
[2016-12-05 04:22] LABS: PLATELET COUNT 305 K/uL (150-450)
[2016-12-06 04:15] LABS: ANION GAP 12.7 (10.0-19.0); BLOOD UREA NITROGEN 13 mg/dL (6-24); CALCIUM 8.4 mg/dL (8.5-10.5); CHLORIDE 108 mMol/L (96-110); CO2 24 mMol/L (22-32); CREATININE 0.4 mg/dL (0.6-1.3); ESTIMATED GFR (MDRD EQUATION) > 60; MAGNESIUM 1.9 mg/dL (1.3-2.6); POTASSIUM 3.7 mMol/L (3.7-5.1); SODIUM 141 mMol/L (135-145)
[2016-12-06 14:56] LABS: BASOPHIL % 0.3 %; EOSINOPHIL # 0.1 K/uL (0.0-0.5); EOSINOPHIL % 1.1 %; HEMATOCRIT 32.5 % (37.0-53.0); HEMOGLOBIN 10.7 g/dL (11.0-16.0); IMMATURE GRANULOCYTE # 0.2 K/uL (0.0-0.3); LYMPHOCYTE # 0.7 K/uL (0.8-4.0); MCH 30.4 pg (27.0-34.0); MCHC 32.9 gm/dL (32.0-36.5); MCV 92.3 fl (83.0-98.0); MONOCYTE # 0.6 K/uL (0.0-1.0); NEUTROPHIL # (ANC) 9.8 K/uL (1.4-9.0); NEUTROPHIL % 85.6 %; NRBC % 0 /100WBC (0-0.00); RBC 3.52 M/uL (3.50-5.50); RDW-CV 14.1 % (11.9-14.6); WBC 11.4 K/uL (4.0-11.0)
[2016-12-06 14:57] LABS: PLATELET COUNT 378 K/uL (150-450)
[2016-12-06 15:04] LABS: INR - (THERAPEUTIC) 1.1 (0.9-1.1); PROTIME 11.5 SECONDS (9.6-11.1); PTT 34 SECONDS (25-32)
[2016-12-06 15:12] LABS: ALBUMIN 2.1 gm/dL (3.5-5.0); ALK PHOS 74 IU/L (33-138); ALT 43 IU/L (12-78); ANION GAP 15.9 (10.0-19.0); AST 45 IU/L (10-40); BLOOD UREA NITROGEN 14 mg/dL (6-24); CALCIUM 8.7 mg/dL (8.5-10.5); CHLORIDE 107 mMol/L (96-110); CO2 22 mMol/L (22-32); CREATININE 0.5 mg/dL (0.6-1.3); ESTIMATED GFR (MDRD EQUATION) > 60; POTASSIUM 3.9 mMol/L (3.7-5.1); SODIUM 141 mMol/L (135-145); TOTAL PROTEIN 5.8 g/dL (6.0-8.4)
[2016-12-06 15:13] LABS: TOTAL BILIRUBIN 1.1 mg/dL (0.0-1.5)
[2016-12-07 04:45] LABS: BASOPHIL % 0.3 %; EOSINOPHIL # 0.1 K/uL (0.0-0.5); EOSINOPHIL % 0.9 %; HEMATOCRIT 31.2 % (37.0-53.0); HEMOGLOBIN 10.3 g/dL (11.0-16.0); IMMATURE GRANULOCYTE # 0.3 K/uL (0.0-0.3); IMMATURE GRANULOCYTE % 2.6 %; LYMPHOCYTE # 0.7 K/uL (0.8-4.0); LYMPHOCYTE % 5.8 %; MCH 30.7 pg (27.0-34.0); MCV 93.1 fl (83.0-98.0); MONOCYTE # 0.8 K/uL (0.0-1.0); MONOCYTE % 6.9 %; MPV 9.2 fl (9.4-12.4); NEUTROPHIL # (ANC) 9.7 K/uL (1.4-9.0); NEUTROPHIL % 83.5 %; NRBC % 0.3 /100WBC (0-0.00); PLATELET COUNT 373 K/uL (150-450); RBC 3.35 M/uL (3.50-5.50); RDW-CV 14.3 % (11.9-14.6); WBC 11.6 K/uL (4.0-11.0)
[2016-12-07 04:59] LABS: ANION GAP 15.7 (10.0-19.0); BLOOD UREA NITROGEN 16 mg/dL (6-24); CALCIUM 8.3 mg/dL (8.5-10.5); CHLORIDE 109 mMol/L (96-110); CO2 22 mMol/L (22-32); CREATININE 0.5 mg/dL (0.6-1.3); ESTIMATED GFR (MDRD EQUATION) > 60; MAGNESIUM 2.1 mg/dL (1.3-2.6); POTASSIUM 3.7 mMol/L (3.7-5.1); SODIUM 143 mMol/L (135-145)
[2016-12-07 05:47] LABS: BICARBONATE 22.3 mmol/L (18.0-23.0); PCO2 28 mmHg (35-45); PO2 58 mmHg (80-90)
[2016-12-08 02:41] LABS: PCO2 34 mmHg (35-45)
[2016-12-08 02:44] LABS: BICARBONATE 27.1 mmol/L (18.0-23.0)
[2016-12-08 02:47] LABS: PO2 49 mmHg (80-90)
[2016-12-08 04:50] LABS: BASOPHIL # 0.1 K/uL (0.0-0.2); BASOPHIL % 0.3 %; EOSINOPHIL # 0.1 K/uL (0.0-0.5); HEMATOCRIT 33.1 % (37.0-53.0); HEMOGLOBIN 10.9 g/dL (11.0-16.0); IMMATURE GRANULOCYTE # 0.5 K/uL (0.0-0.3); IMMATURE GRANULOCYTE % 3.1 %; LYMPHOCYTE # 0.6 K/uL (0.8-4.0); LYMPHOCYTE % 3.9 %; MCHC 32.9 gm/dL (32.0-36.5); MONOCYTE # 0.8 K/uL (0.0-1.0); MONOCYTE % 5.2 %; MPV 9.3 fl (9.4-12.4); NEUTROPHIL # (ANC) 12.7 K/uL (1.4-9.0); NEUTROPHIL % 86.5 %; NRBC % 0.5 /100WBC (0-0.00); PLATELET COUNT 427 K/uL (150-450); RBC 3.52 M/uL (3.50-5.50); RDW-CV 14.9 % (11.9-14.6); WBC 14.7 K/uL (4.0-11.0)
[2016-12-08 05:10] LABS: ANION GAP 14.2 (10.0-19.0); CALCIUM 8.6 mg/dL (8.5-10.5); CHLORIDE 108 mMol/L (96-110); CO2 25 mMol/L (22-32); POTASSIUM 4.2 mMol/L (3.7-5.1); SODIUM 143 mMol/L (135-145)
[2016-12-08 05:13] LABS: BLOOD UREA NITROGEN 35 mg/dL (6-24); CREATININE 0.9 mg/dL (0.6-1.3); ESTIMATED GFR (MDRD EQUATION) > 60
[2016-12-08 07:06] LABS: ALBUMIN 2.1 gm/dL (3.5-5.0); ALK PHOS 86 IU/L (33-138); ALT 54 IU/L (12-78); ANION GAP 15.1 (10.0-19.0); AST 65 IU/L (10-40); BLOOD UREA NITROGEN 35 mg/dL (6-24); CALCIUM 8.8 mg/dL (8.5-10.5); CHLORIDE 111 mMol/L (96-110); CO2 23 mMol/L (22-32); CREATININE 0.8 mg/dL (0.6-1.3); ESTIMATED GFR (MDRD EQUATION) > 60; POTASSIUM 4.1 mMol/L (3.7-5.1); SODIUM 145 mMol/L (135-145); TOTAL PROTEIN 5.9 g/dL (6.0-8.4)
[2016-12-08 07:29] LABS: BICARBONATE 25.7 mmol/L (18.0-23.0); PCO2 33 mmHg (35-45)
[2016-12-08 07:30] LABS: PO2 75 mmHg (80-90)
[2016-12-09 04:38] LABS: BASOPHIL % 0.2 %; EOSINOPHIL # 0.1 K/uL (0.0-0.5); EOSINOPHIL % 0.4 %; HEMATOCRIT 32.6 % (37.0-53.0); HEMOGLOBIN 10.3 g/dL (11.0-16.0); IMMATURE GRANULOCYTE # 0.4 K/uL (0.0-0.3); LYMPHOCYTE # 0.7 K/uL (0.8-4.0); LYMPHOCYTE % 4.2 %; MCH 30.3 pg (27.0-34.0); MCHC 31.6 gm/dL (32.0-36.5); MCV 95.9 fl (83.0-98.0); MONOCYTE # 0.6 K/uL (0.0-1.0); MONOCYTE % 3.6 %; MPV 9.7 fl (9.4-12.4); NEUTROPHIL # (ANC) 15.9 K/uL (1.4-9.0); NEUTROPHIL % 89.6 %; NRBC % 0.3 /100WBC (0-0.00); PLATELET COUNT 389 K/uL (150-450); RDW-CV 15.4 % (11.9-14.6)
[2016-12-09 04:44] LABS: WBC 17.8 K/uL (4.0-11.0)
[2016-12-09 04:55] LABS: ANION GAP 15.9 (10.0-19.0); BLOOD UREA NITROGEN 58 mg/dL (6-24); CALCIUM 8.6 mg/dL (8.5-10.5); CHLORIDE 111 mMol/L (96-110); CO2 24 mMol/L (22-32); ESTIMATED GFR (MDRD EQUATION) > 60; MAGNESIUM 2.5 mg/dL (1.3-2.6); POTASSIUM 3.9 mMol/L (3.7-5.1); SODIUM 147 mMol/L (135-145)
== END 2016-12-09 17:52 | disposition hospice, home (50) | DRG 963 ==
LOC: GACC 19:44 → GAMB 19:44 → GNTU 22:13
PROVIDERS: Emergency Medicine; Hospitalist; Internal Medicine; Internal Medicine Critical Care Medicine; Internal Medicine Interventional Cardiology; Surgery; ADMIT Orthopaedic Surgery
PROC: 30233N1 Transfusion of Nonautologous Red Blood Cells into Peripheral Vein, Percutaneous Approach (ICD-10-PCS; 2016-12-01)
PROC: 4A023N7 Measurement of Cardiac Sampling and Pressure, Left Heart, Percutaneous Approach (ICD-10-PCS; principal; 2016-12-06)
PROC: B211YZZ Fluoroscopy of Multiple Coronary Arteries using Other Contrast (ICD-10-PCS; 2016-12-06)
DX: S72.22XA Displaced subtrochanteric fracture of left femur, initial encounter for closed fracture (principal); I21.4 Non-ST elevation (NSTEMI) myocardial infarction; T79.1XXA Fat embolism (traumatic), initial encounter; J96.01 Acute respiratory failure with hypoxia; J18.9 Pneumonia, unspecified organism; I74.9 Embolism and thrombosis of unspecified artery; I63.9 Cerebral infarction, unspecified; I63.512 Cerebral infarction due to unspecified occlusion or stenosis of left middle cerebral artery; I50.20 Unspecified systolic (congestive) heart failure; D62 Acute posthemorrhagic anemia; G81.91 Hemiplegia, unspecified affecting right dominant side; J98.11 Atelectasis; I48.0 Paroxysmal atrial fibrillation; I48.2 Chronic atrial fibrillation; J45.909 Unspecified asthma, uncomplicated; Z51.5 Encounter for palliative care; I25.10 Atherosclerotic heart disease of native coronary artery without angina pectoris; Z79.01 Long term (current) use of anticoagulants; K52.9 Noninfective gastroenteritis and colitis, unspecified; M19.90 Unspecified osteoarthritis, unspecified site; Z95.0 Presence of cardiac pacemaker; G43.909 Migraine, unspecified, not intractable, without status migrainosus; I44.1 Atrioventricular block, second degree; K21.0 Gastro-esophageal reflux disease with esophagitis; M21.371 Foot drop, right foot; W10.9XXA Fall (on) (from) unspecified stairs and steps, initial encounter; K21.9 Gastro-esophageal reflux disease without esophagitis
CPT/HCPCS: C1760; C8924; C8929; C9113; J0692; J0696; J1630; J1644; J1940; J2270; J2405; J3010; J7030; J7040; J7042; J7050; J7612; P9016; Q9967

== ENCOUNTER → 2016-12-09 | Outpatient (CLI) | payer MEDICARE, OTHER ==
[~2016-12-09] MED LIST: ASCORBIC ACID500 MG PO; ASPIR 8181 MG PO; FISH OIL 1,2001 EACH PO; FLONASE 50 MCG/16 GM NOSE; IMITREX100 MG PO; NABUMETONE750 MG PO; NEURONTIN400 MG PO; NORCO 5-325 TA1 EACH PO; OMEPRAZOLE40 MG PO; PROVENTIL OR V6.7 GM INH; REGLAN10 MG PO; RYTHMOL150 MG PO; SYSTANE 0.3-0.440 ML OPHTH; THERA-VITE W/ B1 TAB PO; TOPAMAX25 MG PO; TUMS REGULAR ST1 TAB PO; ZYRTEC10 MG PO
== END | disposition disaster alternative care site (69) ==
LOC: GAIR 17:58 → GAMB 17:58
DX: R06.00 Dyspnea, unspecified (principal); S72.92XD Unspecified fracture of left femur, subsequent encounter for closed fracture with routine healing; I25.10 Atherosclerotic heart disease of native coronary artery without angina pectoris; I44.30 Unspecified atrioventricular block; I48.91 Unspecified atrial fibrillation; K52.9 Noninfective gastroenteritis and colitis, unspecified; Z79.82 Long term (current) use of aspirin; Z79.899 Other long term (current) drug therapy; Z88.1 Allergy status to other antibiotic agents; Z88.8 Allergy status to other drugs, medicaments and biological substances; X58.XXXD Exposure to other specified factors, subsequent encounter
CPT/HCPCS: A0422; A0431; A0436